=== PATIENT | male | born 1945 | race Caucasian/White ===

== ENCOUNTER 2023-10-05 08:08 | Outpatient (AMB) | payer OTHER, SELFPAY ==
--- NOTE | 2023-10-05 08:12 | MHC.OFFVIS ---
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 Lots of tremors and restless legs. Lots of trouble walking. Wondering is Carbidopa/Levodopa dose should be increased. Allergies fluoxetine [From Prozac] Allergy (Mild, Verified 10/05/23 08:23) Rash Medication List - Last Reconciled 10/05/23 by Alicia Rushing, LORENA albuterol sulfate mcg inhalation carbidopa-levodopa 25-100 mg 1 tab PO QID clonazepam 0.25 mg (1/2 x 0.5 mg) PO BEDTIME 30 days donepezil 10 mg PO DAILY entacapone (Comtan) 200 mg PO QID levetiracetam 500 mg PO BID montelukast 10 mg PO DAILY rasagiline 1 mg PO DAILY 30 days HPI HPI Comments History of Present Illness Details 78 y/o male patient presents for new in-person visit for Parkinson's. Pt was diagnosed with Parkinson's in 2021. He was seen by Dr. Renteria, [facility] Neurologist, last seen was last year. He is on Sinemet 1 tab QID with Comtan 200 mg QID, at 9 am, 12 pm, 5 pm and 9 pm. states that tremor from the hip to legs gets worse during the night. He has freezing episode in the middle of night when he wakes up to go to bathroom. In the morning his legs feels very heavy, and more shaky. He tried Sinement 1.5 tab QID, his hallucination has increased really bad. He still has hallucinations occasionally, he talks in the dark, but not every night. He also gets light headedness in the morning. He uses walker, no falls reported. Reports REM behavior, is on melatonin 10mg, and it helps reduce the REM behavior a little bit. He uses position bed, has rails, and it helps him to get out of bed. He has physical therapy once a week. He can feed himself. He can do ADLs most independently, needs help for shaving. Norbert constipation. [facility] Medical History (Updated 10/05/23 @ 14:36 by Alicia Rushing CNP) Prostate CA Appendix disease Family History (Updated 10/05/23 @ 08:45 by Monika Palma CMA) Father Cancer Alzheimer disease Hypertension Mother Hypertension Diabetes Sister Cancer Daughter Asthma Depression Social History (Updated 10/05/23 @ 08:47 by Monika Palma CMA) Household Members: Spouse Housing: House Alcohol intake: never Patient Tobacco Use Status: Never used Tobacco Review of Systems Const All systems reviewed & are unremarkable except as noted in HPI and below Physical Exam Vital Signs: Last Vital Signs Pulse 59 10/05/23 08:24 BP 122/70 10/05/23 08:24 Pulse Ox 97 10/05/23 08:24 Oxygen Delivery Method Room Air 10/05/23 08:24 BMI result Body Mass Index 26.4 Const General: cooperative Nutritional Appearance: overweight Orientation/consciousness: patient oriented x3 Limitations: ambulation with walker Neck Neck: Yes full ROM and Yes supple Resp Effort & Inspection: normal respiratory effort and able to speak in complete sentences Neuro Other: Mildly decreased facial expression. Minimal hands tremor. No cogwheel rigidity. Decreased foot tap bilaterally. Small steps with arm swing. 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 Roy. Advised patient to continue to take Sinemet 1 tab, QID with Comtan 200 mg QID. Advised patient to try rasagiline 1 mg daily. Try clonazaoam 0.25 mg qHS with melatonin 10 mg qHS to manage REM behavior. Continue to do home PT and ask to increase PT time. Medications: New rasagiline 1 mg PO DAILY 30 days 30 tabs 2RF clonazepam administer 30 minutes before bedtime 0.25 mg (1/2 x 0.5 mg) PO BEDTIME 30 days 15 tabs 2RF Coding Level of Care Code New Pt Level 4 (25619) Diagnoses Parkinson disease G20.A1 REM behavioral disorder G47.52
[2023-10-05 08:24] VITALS: BP 122/70; PULSE 59; O2SAT 97; BMI 26.4
== END 2023-10-05 09:08 | disposition home or self-care (01) ==
PROVIDERS: Visit Provider Nurse Practitioner Family
DX: G20.A1 Parkinson's disease without dyskinesia, without mention of fluctuations (principal); G47.52 REM sleep behavior disorder
CPT/HCPCS: 99204

== ENCOUNTER → 2023-10-05 08:08 | Outpatient (BNVA) | payer OTHER, SELFPAY | PROVIDERS: Visit Provider Nurse Practitioner Family | DX: G20.A1 Parkinson's disease without dyskinesia, without mention of fluctuations (principal); G47.52 REM sleep behavior disorder | CPT/HCPCS: 99202 ==

== ENCOUNTER 2024-02-01 13:54 | Outpatient (AMB) | payer OTHER, SELFPAY ==
--- NOTE | 2024-02-01 14:07 | MHC.OFFVIS ---
Vital Signs 02/01/24 14:08 Height 5 ft 3 in Weight 152 lb BMI 26.9 BP 98/60 Blood Pressure Location Rt brachial Position Sitting Respiration 16 Pulse 74 Pulse Source Pulse Oximeter Pulse Oximetry (%) 97 Oxygen Delivery Method Room Air Intake Visit Reasons: Follow up Parkinson's - Confirmed Intake Note: Pt presents for a 4 month follow up for Parkinson's. 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 Allergies fluoxetine [From Prozac] Allergy (Mild, Verified 02/01/24 14:08) Rash Medication List - Last Reconciled 02/01/24 by Jhoana Roy MD albuterol sulfate mcg inhalation carbidopa-levodopa 25-100 mg 1 tab PO QID clonazepam 0.25 mg (1/2 x 0.5 mg) PO BEDTIME 30 days docusate sodium (Stool Softener) 50 mg PO DAILY donepezil 10 mg PO DAILY entacapone (Comtan) 200 mg PO QID ferrous sulfate 1 mL PO DAILY levetiracetam 500 mg PO .qhs montelukast 10 mg PO DAILY ropinirole 2 mg PO DAILY 30 days trospium 20 mg PO BID HPI Comments Details: 78 y/o male patient presents for new in-person visit for Parkinson's. Pt was diagnosed with Parkinson's in 2021. He is on Sinemet 25/100 - 2tabs 9am 1 tab at 1pm , 1 tab at 5 pm Ropinirole XR 2mg qhs Clonazepam helps with REM behavior disorder. He also takes melatonin 3mg qhs His PCP started on mirtazapine 7.5mg but he was tired so he stopped. He had aback surgery last week and tosses and turns since then He uses walker, no falls reported. Reported REM behavior, is on melatonin 3mg and clonazepam helps. He uses position bed, has rails, and it helps him to get out of bed. He can feed himself. He can do ADLs most independently, needs help for shaving. Norbert constipation. [facility] Medical History (Updated 02/01/24 @ 14:42 by Jhoana Roy MD) Parkinson's disease without dyskinesia Prostate CA Appendix disease Surgical History H/O lumbosacral spine surgery Family History Father Cancer Alzheimer disease Hypertension Mother Hypertension Diabetes Sister Cancer Daughter Asthma Depression Social History Household Members: Spouse Housing: House Alcohol intake: never Patient Tobacco Use Status: Never used Tobacco Physical Exam Vital Signs: Last Vital Signs Pulse 74 02/01/24 14:08 Resp 16 02/01/24 14:08 BP 98/60 02/01/24 14:08 Pulse Ox 97 02/01/24 14:08 Oxygen Delivery Method Room Air 02/01/24 14:08 BMI result Body Mass Index 26.9 Const General: cooperative Nutritional Appearance: overweight Orientation/consciousness: patient oriented x3 Limitations: ambulation with walker Neck Neck: Yes full ROM and Yes supple Resp Effort & Inspection: normal respiratory effort and able to speak in complete sentences Neuro Other: Mildly decreased facial expression. Minimal hands tremor. No cogwheel rigidity. Decreased foot tap bilaterally. Small steps with arm swing. 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 Continue to do home PT and ask to increase PT time. Medications: Refilled ropinirole 2 mg PO DAILY 30 days 30 tabs 3RF Coding Level of Care Code Est Pt Level 4 (88865) Complex EM visit Add On G2211 Diagnoses Parkinson's disease without dyskinesia G20.A1 REM behavioral disorder G47.52
[2024-02-01 14:08] VITALS: BP 98/60; PULSE 74; RESP 16; O2SAT 97; BMI 26.9
== END 2024-02-01 14:52 | disposition home or self-care (01) ==
PROVIDERS: Visit Provider Psychiatry & Neurology Neurology
DX: G20.A1 Parkinson's disease without dyskinesia, without mention of fluctuations (principal); G47.52 REM sleep behavior disorder
CPT/HCPCS: 99214; G2211

== ENCOUNTER → 2024-02-01 13:54 | Outpatient (BNVA) | payer OTHER, SELFPAY | PROVIDERS: Visit Provider Psychiatry & Neurology Neurology | DX: G20.A1 Parkinson's disease without dyskinesia, without mention of fluctuations (principal); G47.52 REM sleep behavior disorder | CPT/HCPCS: 99212 ==

== ENCOUNTER 2024-08-10 13:46 | Outpatient (AMB) | payer OTHER, SELFPAY ==
[2024-08-10 13:53] VITALS: BP 96/64; BMI 26.9
--- NOTE | 2024-08-10 13:53 | A.OFFVIS_ITS ---
Vital Signs 08/10/24 13:53 Height 5 ft 3 in Weight 152 lb BMI 26.9 BP 96/64 Blood Pressure Location Rt brachial Position Sitting Intake Visit Reasons: Follow up Parkinson's Intake Note: Patient presents for follow up Allergies fluoxetine [From Prozac] Allergy (Mild, Verified 08/10/24 13:55) Rash Medication List - Last Reconciled 08/10/24 by Jhoana Roy MD albuterol sulfate mcg inhalation carbidopa-levodopa 25-100 mg 2 tabs PO TID clonazepam 0.25 mg (1/2 x 0.5 mg) PO BEDTIME 30 days docusate sodium (Stool Softener) 50 mg PO DAILY donepezil 10 mg PO DAILY 30 days ferrous sulfate 1 mL PO DAILY levetiracetam 500 mg PO .qhs montelukast 10 mg PO DAILY ropinirole 2 mg PO DAILY 30 days trospium 20 mg PO BID HPI Comments Details: 79 y/o male patient comes for follow up. His gait has worsened , more freezing , uses a cane or waker.He also has chronic back pain and had surgery last year.He has frequent arousals at night and has excessive daytime sleepiness. Pt was diagnosed with Parkinson's in 2021. He is on Sinemet 25/100 - 2tabs 9am 1 tab at 1pm , 1 tab at 5 pm Ropinirole XR 2mg qhs Clonazepam helps with REM behavior disorder. He also takes melatonin 3mg qhs Reported REM behavior, is on melatonin 3mg and clonazepam helps. He uses position bed, has rails, and it helps him to get out of bed. He needs help with ADLS due to weakness. Norbert constipation. [facility] Medical History Parkinson's disease without dyskinesia Prostate CA Appendix disease Surgical History H/O lumbosacral spine surgery Family History Father Cancer Alzheimer disease Hypertension Mother Hypertension Diabetes Sister Cancer Daughter Asthma Depression Social History Household Members: Spouse Housing: House Alcohol intake: never Patient Tobacco Use Status: Never used Tobacco Physical Exam Vital Signs: Last Vital Signs BP 96/64 08/10/24 13:53 BMI result Body Mass Index 26.9 Const General: cooperative Orientation/consciousness: patient oriented x3 Limitations: ambulation with walker Neck Neck: Yes full ROM and Yes supple Resp Effort & Inspection: normal respiratory effort and able to speak in complete sentences Neuro Other: Mildly decreased facial expression. Minimal hands tremor. No cogwheel rigidity. Decreased foot tap bilaterally. 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 ) Psych Appearance: grossly normal Mental Status: mental status grossly normal Affect: normal affect Attitude: cooperative Assessment & Plan Assessment & Plan (1) Parkinson's disease without dyskinesia: Code(s): G20.A1 - Parkinson's disease without dyskinesia, without mention of fluctuations Category: Medical Qualifiers: Fluctuating manifestations: without fluctuating manifestations Qualified Code(s): G20.A1 - Parkinson's disease without dyskinesia, without mention of fluctuations (2) REM behavioral disorder: Code(s): G47.52 - REM sleep behavior disorder Category: Medical Plan Continue Ropinirole 2mg qhs Increase Sinemet 25/100 2-2-2 clonazaoam 0.25 mg qHS with melatonin 3 mg qHS to manage REM behavior. Continue to do home PT and ask to increase PT time. Medications: Changed From carbidopa-levodopa 25-100 mg 1 tab PO QID To carbidopa-levodopa 25-100 mg 2 tabs PO TID 180 tabs 6RF Coding Level of Care Code Est Pt Level 4 (48549) Complex EM visit Add On G2211 Diagnoses Parkinson's disease without dyskinesia or fluctuating manifestations G20.A1 Fluctuating manifestations: without fluctuating manifestations REM behavioral disorder G47.52
--- OUTSIDE RECORDS SUMMARY | 2024-08-10 16:02 | XMS_ITS | Clinical Summary ---
Author Organization [place] [address] [facility] Building Address [address] [place] [address] Phone Care Team Providers Care Bsa Officer Name Role Phone Za Marie DO Primary Care Provider [phone] Allergies No known active allergies Medications Medication Sig Dispensed Refills Start Date End Date Status digestive enzymes capsule Take 1 Capsule by mouth 3 times daily (before meals). - Oral Active cyanocobalamin, vitamin B-12, 1,000 mcg/mL kit Inject 1 mL into the muscle every 30 days. - Intramuscular Active mirtazapine (REMERON) 7.5 mg tablet Take 1 tablet (7.5 mg total) by mouth at bedtime. Active rOPINIRole (REQUIP) 2 mg tablet Take 1 tablet (2 mg total) by mouth at bedtime. Active trospium (SANCTURA) 20 mg tablet Take 1 tablet (20 mg total) by mouth 2 (two) times a day. Active clonazePAM (KlonoPIN) 0.5 mg tablet Take 1 tablet (0.5 mg total) by mouth 1 (one) time each day. Active ferrous sulfate 325 mg (65 mg iron) EC tablet Take 1 tablet (325 mg total) by mouth 1 (one) time each day. Active docusate sodium (COLACE) 100 mg capsule Take 1 capsule (100 mg total) by mouth 2 (two) times a day. Active tiotropium (SPIRIVA) 18 mcg per inhalation capsule Inhale 1 Capsule into the lungs daily. Inhale the contents of one capsule through the Spiriva device every AM - Inhalation Active apixaban (ELIQUIS) 5 mg tablet Take 5 mg by mouth 2 times daily. - Oral Active sodium chloride (OCEAN) 0.65 % nasal spray 1 [place] by Nasal route as needed. - Nasal Active donepeziL (ARICEPT) 10 mg tablet Take 1 tablet by mouth at bedtime. - Oral Active carbidopa-levodo pa (SINEMET) 25-100 mg per tablet Take 1 Tablet by mouth 4 times daily. - Oral Active levETIRAcetam (KEPPRA) 500 mg tablet Take by mouth 2 (two) times a day. Active montelukast (SINGULAIR) 10 mg tablet Take 1 tablet (10 mg total) by mouth at bedtime. Active albuterol HFA (PROVENTIL HFA;VENTOLIN HFA) 108 (90 Base) MCG/ACT inhaler Inhale 2 puffs by mouth every 4 (four) hours if needed for wheezing. Active omega-3 fatty acids 1,000 mg capsule Take by mouth 1 (one) time each day. Active multivitamin (MULTIPLE VITAMINS ORAL) Take by mouth 1 (one) time each day. Active Digestive Enzymes,mal,lac, inv, 220 mg capsule TAKE 1 CAPSULE BY MOUTH 3 TIMES DAILY (BEFORE MEALS). 90 each 2 07/19/2024 5 Active docusate sodium (Colace) 100 mg capsule Take 1 capsule (100 mg total) by mouth 2 (two) times a day. 60 each 08/08/2024 Active polyethylene glycol (MIRALAX) 17 gram packet Take 17 g by mouth 1 (one) time each day. 510 g 08/08/2024 6 Active digestive enzymes capsule Take 1 capsule by mouth 3 (three) times a day. 180 each 08/08/2024 Active Digestive Enzymes,mal,lac, inv, 220 mg capsule TAKE 1 CAPSULE BY MOUTH 3 TIMES DAILY (BEFORE MEALS). 90 each 1 05/19/2024 5 Discontinued Hospital, Clinic, or Other Facility Administered Medication Ordered Dose Route Frequency Start Date End Date Status cyanocobalamin (VITAMIN B-12) injection 1,000 mcgIndications:Vitamin B 12 deficiency 1000 mcg IM Every 30 days 05/13/2024 11/09/2024 Active Encounters Date Type Department Care Team Description 08/08/2024 10:00 AM EST Office Visit Gastroenterology - [place] [address] [facility] [address] [facility] [address] [place] [address] Sterling Mckoy PA Constipation, unspecified constipation type (Primary Dx); Straining with stools; History of abdominal surgery; Blood in stool; Parkinson's disease without dyskinesia, unspecified whether manifestations fluctuate ([facility]); H/O deep venous thrombosis 06/20/2024 1:15 PM EST Office Visit Disaster Recovery Analyst - [place] [address] [place], [place] [phone] Jarad Peguero PA Vitamin B 12 deficiency (Primary Dx) 05/19/2024 1:15 PM EST Office Visit Disaster Recovery Analyst - [place] [address] [place] [address] Jarad Peguero PA Vitamin B 12 deficiency (Primary Dx) from Last 3 Months Immunizations Name Administration Dates Next Due Influenza trivalent, 0.5mL ( Fluzone High-dose) 65yo and older 03/15/2024,03/31/2023,05/09/2021 [employer] SARS-CoV-2 COVID-19, mRNA, LNP-S, preservative free 08/29/2020,08/08/2020 Pneumococcal conjugate 20 va lent (Prevnar 20, PCV 20) 2mo and older 03/31/2023 Pneumococcal polysaccharide 23 valent (Pneumovax 23) 2yo and older 12/09/2005 Tdap Tetanus diptheria acell ular pertussis (Boostrix; Adacel) 7yo and older 03/31/2023 Surgical History Surgery Date Site/Laterality Comments OTHER SURGICAL HISTORY 1991 PROCEDURE: HISTORY OTHER; COMMENT: Partial removal of intestines due to rupture OTHER SURGICAL HISTORY PROCEDURE: HISTORY OTHER; COMMENT: ?surgery for hernia 1994, 1995 OTHER SURGICAL HISTORY 2004 PROCEDURE: HISTORY OTHER; COMMENT: surgery for prostate cancer OTHER SURGICAL HISTORY 2011 PROCEDURE: HISTORY OTHER; COMMENT: penis implant Medical History Medical History Date Comments Decreased appetite DX:Decreased appetite Weight loss DX:Weight loss Nausea and vomiting DX:Nausea an d vomiting Parkinson's disease (CMS/HCC) DX :Parkinson's disease (HCC) Alzheimer's disease, unspeci fied (CODE) (CMS/[facility]) DX:Alzheimer's disease, unsp ecified (CODE) (HCC) History of pulmonary embolism DX :History of pulmonary embolism History of prostate cancer DX:Hi story of prostate cancer Vitamin B12 deficiency DX:Vitami n B12 deficiency Family History Medical History Relation Name Comments Hypertension Father Prostate cancer Father Stroke Father Asthma Mother Coronary artery disease Mother Diabetes Mother Hypertension Mother Relation Name Status Comments Father Mother Social History Tobacco Use Types Packs/Day Years Used Date Smoking Tobacco: Never Smokeless Tobacco: Never Alcohol Use Standard Drinks/Week Comments Not Currently 0 (1 standard drink = 0.6 oz pur e alcohol) Sex and Gender Information Value Date Recorded Sex Assigned at Not on file Gender Identity Not on file Sexual Orientation Not on file Job Start Date Occupation Industry Not on file Not on file Not on file Obstetrics History Last Filed Vital Signs Vital Sign Reading Time Taken Comments Blood Pressure 122/74 08/08/2024 10:11 AM EST Pulse 69 08/08/2024 10:11 AM EST Temperature - - Respiratory Rate - - Oxygen Saturation - - Inhaled Oxygen Concentration - - Weight 69.3 kg (152 lb 12.8 oz) 025 10:11 AM EST Height 160 cm (5' 3 ) 08/08/2024 10:11 AM EST Body Mass Index 27.07 08/08/2024 10:11 AM EST Plan of Treatment Health Maintenance Due Date Last Done Comments RSV Immunization Patients 60+ Years Old (1 - 1-dose 75+ series) 2022 Depression Screening 06/22/2022 Falls Risk Assessment 06/22/2022 Hepatitis C Screening 06/22/2022 Medicare Annual Wellness Visit 06/22/2022 Social Influencers of Health Screening 06/22/2022 COVID-19 Vaccine ( season) 2024 12/03/2021, 11/14/2021, 04/26/2021, Additional history exists Hypertension/CHF/CAD Annual BMP Blood Test 03/11/2025 03/11/2024, 03/11/2024, 07/03/2021 Cholesterol Screening (Lipid Panel) 03/11/2029 03/11/2024, 03/11/2024, 07/03/2021, Additional history exists DTaP,Tdap,and Td Vaccines (6 - Td or Tdap) 03/31/2033 03/31/2023, 05/08/2014, 12/27/2009, Additional history exists Zoster Vaccines Completed 09/29/2020, 07/14, 09/30/2019, Additional history exists Pneumococcal Vaccine: 65+ Years Completed 03/31/2023, 03/03/2020, 03/03/2017, Additional history exists Influenza Vaccine Completed 03/15/2024, , 03/28/2022, Additional history exists HIB Vaccines Aged Out No longer eligi ble based on patient's age to complete this topic HPV Vaccines Aged Out No longer eligi ble based on patient's age to complete this topic Hepatitis A Vaccines Aged Out No long er eligible based on patient's age to complete this topic Hepatitis B Vaccines Aged Out No long er eligible based on patient's age to complete this topic IPV Vaccines Aged Out No longer eligi ble based on patient's age to complete this topic MMR Vaccines Aged Out No longer eligi ble based on patient's age to complete this topic Meningococcal ACWY Vaccine Aged Out N o longer eligible based on patient's age to complete this topic RSV Immunization Patients Under 20 months Aged Out No longer eligible based on patient's age to complete this topic Varicella Vaccines Aged Out No longer eligible based on patient's age to complete this topic Procedures Procedure Name Priority Date/Time Associated Diagnosis Comments ANNUAL BMP BLOOD TEST Routine 03/11/2024 LIPID PANEL Routine 03/11/2024 from Last 3 Months or Most Recently Relevant to Health Maintenance Results * Annual BMP Blood Test (03/11/2024) Pathologist [facility] Annual BMP Blood Test abstracted Historical Provider MD MARIBELL ROSS E * Lipid panel (03/11/2024) LDL/HDL Ratio 3 0 - 4 Triglycerides 126 0 - 150 mg/dL Cholesterol 149 0 - 200 mg/dL HDL 50 40 mg/dL LDL Cholesterol 74 0 - 100 mg/dL Blood Venous blood specimen / Unknown Historical Provider LAB BLOOD ORDERAB LES from Last 3 Months or Most Recently Relevant to Health Maintenance Advance Directives Documents on File Type Date Recorded 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
--- OUTSIDE RECORDS SUMMARY | 2024-08-10 16:02 | XMS_ITS | Encounter Summary ---
Author Organization [facility] Address [address] [place] [address] Care Team Providers Care X Ray Equipment Mechanic Name Role Phone Za Marie DO Primary Care Provider [phone] Reason for Visit * Reason Comments Black or Bloody Stool Encounter Details Date Type Department Care Team (Latest Contact Info) Description 08/08/2024 10:00 AM EST Office Visit Gastroenterology - [place] [address] [place] [id number] Sterling Mckoy PA [address] [place] [address] Constipation, unspecified constipation type (Primary Dx); Straining with stools; History of abdominal surgery; Blood in stool; Parkinson's disease without dyskinesia, unspecified whether manifestations fluctuate (CMS/HCC); H/O deep venous thrombosis Social History Tobacco Use Types Packs/Day Years [...] file Not on file Not on file documented as of this encounter Last Filed Vital Signs Vital Sign Reading [...] Mass Index 27.07 08/08/2024 10:11 AM EST documented in this encounter Patient Instructions * Attachments The following attachments cannot be sent through Care Everywhere. * Constipation (Puerto [place]ican) * Parkinson's Disease ([place]) * Fiber Foods: General Info ([place]) documented in this encounter Ordered Prescriptions Prescription Sig Dispensed Refills Start Date End Da te digestive enzymes capsule Take 1 capsule by mouth 3 (three) times a day. 180 each 08/08/2024 polyethylene glycol (MIRALAX) 17 gram packet Take 17 g by mouth 1 (one) time each day. 510 g 08/08/2024 08/08/2025 docusate sodium (Colace) 100 mg capsule Take 1 capsule (100 mg total) by mouth 2 (two) times a day. 60 each 08/08/2024 documented in this encounter Progress Notes * BREANN Adair - 08/08/2024 10:00 AM EST Patient returns for follow up of constipation and recent history of blood ins tool. Patient does have some issues with constipation- may be due to medications or inactivity. Patient should use the colace daily as well as the miralax and see if that will helop with the movement. He has had blood recently but that was after sitting on the toilet for 2 hours. Patient also is on eliquis and may have caused some rectal irritation due to sitting for so long. Patient to use the medications to help move the bowels and if needed for more medications they will contact the office. Patient has also had surgery to the large intestines due to diverticulitis. Patient needs to use fiber foods. Patient needs to drink mo0re water and try to stay active * BREANN Adair - 08/08/2024 10:00 AM EST DENTIFIER: Cesar Barbour is a 79 y.o. old male who presents to the gastroenterology department today for re-evaluation of constipation, straining with stool, recent episode of blood in toilet. HPI: 79-year-old gentleman returns for follow up of constipation and recent history of blood in stool. Patient is accompanied by his and their adult son. Patient had last been seen in January 2023 for abdominal pain and had undergone an endoscopy and colonoscopy in February 2023. Studies were essentially normal. They did note that he had diverticulosis as well as end-to-end ileocolonic anastomosis from colon resection due to diverticulitis in the past. patient does have some issues with constipation- may be due to medications and/or inactivity. Patient should use the colace daily as well as the miralax and see if that will help with the movement. He has had blood in the toilet recently but that was after sitting on the toilet for 2 hours and admits to straining to excrete the stool. Patient also is on eliquis and may have caused some rectal irritation due to sitting for so long. Patient to use the medications to help move the bowels and if needed for more medications they willcontact the office. Patient has also had surgery to the large intestines due to diverticulitis in the past. Patient needs to use fiber foods. Patient needs to drink more water and try to stay active-is not very active due to his Parkinson's ROS: GENERAL: No malaise, significant weight loss or fever HEENT: No changes in hearing or vision, nose bleeds or swallowing problems NECK: No lumps, goiter, pain or significant neck swelling RESPIRATORY: No cough, wheezing or shortness of breath CARDIOVASCULAR: No chest pain, leg swelling or palpitations GI: Positive for constipation, abdominal discomfort, blood in stool, straining with stool MUSCULOSKELETAL: No joint pain or swelling, back pain, or muscle pain. SKIN: No lesions, rash or itching Neuro: Positive for Parkinson's Hematology: Positive for history of DVT on Eliquis The remainder of the review of systems is reviewed and negative. PAST MEDICAL HISTORY: There are no problems to display for this patient. SOCIAL HISTORY: Social History Tobacco Use Smoking status: Never Smokeless tobacco: Never Substance Use Topics Alcohol use: Not Currently FAMILY HISTORY: Family History Problem Relation Name Age of Onset Coronary artery disease Mother Diabetes Mother Hypertension Mother Asthma Mother Hypertension Father Prostate cancer Father Stroke Father ACTIVE MEDICATIONS: Outpatient Medications Marked as Taking for the 08/08/24 encounter (Office Visit) with BREANN Adair Medication Sig Dispense Refill albuterol HFA (PROVENTIL HFA;VENTOLIN HFA) 108 (90 Base) MCG/ACT inhaler Inhale 2 puffs by mouth every 4 (four) hours if needed for wheezing. apixaban (ELIQUIS) 5 mg tablet Take 5 mg by mouth 2 times daily. - Oral carbidopa-levodopa (SINEMET) 25-100 mg per tablet Take 1 Tablet by mouth 4 times daily. - Oral clonazePAM (KlonoPIN) 0.5 mg tablet Take 1 tablet (0.5 mg total) by mouth 1 (one) time each day. cyanocobalamin, vitamin B-12, 1,000 mcg/mL kit Inject 1 mL into the muscle every 30 days. - Intramuscular digestive enzymes capsule Take 1 Capsule by mouth 3 times daily (before meals). - Oral Digestive Enzymes,mal,lac,inv, 220 mg capsule TAKE 1 CAPSULE BY MOUTH 3 TIMES DAILY (BEFORE MEALS).90 each 2 docusate sodium (COLACE) 100 mg capsule Take 1 capsule (100 mg total) by mouth 2 (two) times a day. donepeziL (ARICEPT) 10 mg tablet Take 1 tablet by mouth at bedtime. - Oral ferrous sulfate 325 mg (65 mg iron) EC tablet Take 1 tablet (325 mg total) by mouth 1 (one) time each day. levETIRAcetam (KEPPRA) 500 mg tablet Take by mouth 2 (two) times a day. mirtazapine (REMERON) 7.5 mg tablet Take 1 tablet (7.5 mg total) by mouth at bedtime. montelukast (SINGULAIR) 10 mg tablet Take 1 tablet (10 mg total) by mouth at bedtime. multivitamin (MULTIPLE VITAMINS ORAL) Take by mouth 1 (one) time each day. omega-3 fatty acids 1,000 mg capsule Take by mouth 1 (one) time each day. rOPINIRole (REQUIP) 2 mg tablet Take 1 tablet (2 mg total) by mouth at bedtime. sodium chloride (OCEAN) 0.65 % nasal spray 1 [place] by Nasal route as needed. - Nasal tiotropium (SPIRIVA) 18 mcg per inhalation capsule Inhale 1 Capsule into the lungs daily. Inhale the contents of one capsule through the Spiriva device every AM - Inhalation trospium (SANCTURA) 20 mg tablet Take 1 tablet (20 mg total) by mouth 2 (two) times a day. Current Facility-Administered Medications for the 08/08/24 encounter (Office Visit) with BREANN Adair Medication Dose Route Frequency Provider Last Rate Last Admin cyanocobalamin (VITAMIN B-12) injection 1,000 mcg 1,000 mcg intramuscular q30 days Za Marie DO 1,000 mcg at 06/20/24 1418 ALLERGIES: @ALL@ PHYSICAL EXAM: Visit Vitals BP 122/74 Pulse 69 Ht 1.6 m (63 ) Wt 69.3 kg (152 lb 12.8 oz) BMI 27.07 kg/m?? Smoking Status Never BSA 1.72 m?? APPEARANCE: Alert and in no acute distress EYES: PERRLA, conjunctiva and sclera normal. MOUTH/THROAT: no erythema or exudates NECK: Neck supple, no adenopathy HEART: RRR with normal S1 and S2, no murmurs appreciated LUNG: clear to auscultation LYMPH NODES: grossly normal ABDOMEN: Soft, nontender, normal active bowel sound throughout, no organomegaly RECTAL: Exam deferred. EXTREMITIES: Extremities warm and well perfused SKIN: Skin color, texture, turgor normal. LABS: No results found for: WBC , HGB , HCT , MCV , PLT , NA , K , CL , CO2 , GLUCOSE , BUN , CREATININE , CALCIUM , PROT , ALBUMIN , BILITOT , AST , ALT , URICACID , PHOS , MG , ALKPHOS , EGFR No results found for: SEDRATE , CRP , IRON , FERRITIN , CDIFFTOX , HPYLORI , STOOLCX , LIPASE , APTT , PT , INR , CELIAC , TTGIGA , GLIADINIGA , OCCULTBLD , CALPROTECTIN IMAGING: RADIOLOGIC EXAM CHEST 2 VIEWS RADIOLOGIC EXAM CHEST 2 VIEWS Reason: cough Comparison: Radiographs on May 24, 2023 FINDINGS: Lungs: No focal consolidation. No evidence of pulmonary edema. Pleura: No pleural effusion or pneumothorax. Heart/Mediastinum: Unchanged cardiomediastinal silhouette. Bones : No acute abnormality. IMPRESSION: IMPRESSION: No acute abnormality. CT Results for orders placed in visit on 06/01/23 CT ABDOMEN & PELVIS W/WO CONT Narrative [facility] Diagnostic Imaging Department [address] [place] [id number] Patient: CESAR BARBOUR /Age/Sex: 1945 - 78 - M Unit#: [id number] Location/Status: SPDICAT/REG CLI Mnemonic/Ordering Site: CTABDPELB/SPCT Ordering Physician: MARTÍNEZ PATEL MD CT Abdomen & Pelvis W/WO Cont - 06/01/23 - [id number] Report Status:Signed CT scan of the abdomen and pelvis without and with contrast (CT IVP) HISTORY: Gross hematuria COMPARISON: CT scan of the abdomen and pelvis dated 12/17/2015 TECHNIQUE: Thin section axial scans were obtained through the abdomen and pelvis without and with contrast. Delayed views were obtained to evaluate the collecting structures. Sagittal and coronal reconstructions were performed. DLP: 1775.02 mGy/cm ZenCardpeed VCT Iterative reconstruction technique: FINDINGS: There is a low attenuating exophytic lesion anterior aspect mid pole left kidney measuring 2.75 cm in maximal dimensions and measures fluid density likely a cyst but is increased significantly in size since the previous examination at which time it measured 1.6 cm. There is small peripelvic left renal cysts. There is a tiny 5 mm low attenuating lesion mid pole right kidney likely a small cortical cysts. There is no evidence for calculus. The kidneys enhance normally and symmetrically with contrast. The calyces and ureters appear normal. The bladder is not well distended. There is a bladder diverticulum to the left laterally which was present previously. There is no definite bladder mass. There are postoperative changes the prostate again noted. There is a penile implant in place. Lung bases are clear. There is cardiomegaly which was noted previously. There is no pericardial or pleural effusion. Liver and spleen are normal size and contour. There are multiple gallstones within the gallbladder. There is no gallbladder wall thickening or bile duct dilatation. Adrenals and pancreas appear normal. Limited views of the bowel demonstrated extensive colonic diverticulosis without definite evidence for diverticulitis. There are also postoperative changes in the right colon. Aorta is of normal caliber. There is no retroperitoneal mass. There is no intrapelvic adenopathy mass or fluid. Impression 1. 2.8 cm low attenuating lesion left kidney possibly a cyst but significantly increased in size compared to previous examinations dating back to 2016. Robin mmend renal sonography to further assess. There are postoperative changes to the prostate and the bladder is not well distended and views are limited.. However there is no definite bladder mass. 2. Extensive colonic diverticulosis without definite evidence for diverticulitis. 3. Other findings as detailed above unchanged. G9637 Dose G9549, G9547 (Documenting medical reason for recommending f/u) Dictating Physician: JOSUE CROWDER MD Electronically Signed by: JOSUE CROWDER MD Dic Date/Time: 06/09/23 1617 Sign date/Time: 06/09/23 1632 US Results for orders placed in visit on 05/18/22 [facility] [address] [place] [id number] Patient: CESAR BARBOUR Kenna DINH D.O.B./Age/Sex: 1945 - 77 - M Unit#: [id number] Location/Status: SP4ORT/ADM [place] Mnemonic/Ordering Site: [facility] Ordering Physician: GEORGE NORWOOD PA-C US Duplex Venous Study Bilat - 05/18/22 - 2823 Bilateral lower extremity venous Doppler ultrasound. May 18, 2022 2215 hours Clinical history: Confirm VTE Lower extremity Comparison: No prior study is available for comparison. Findings: Stuart scale, color flow and spectral Doppler evaluation of the lower extremity deep veins was performed. Right: The common femoral, superficial femoral and popliteal veins are patent and compressible. Normal respiratory variation is noted. The calf veins to the extent visualized are patent. There is no evidence of occlusive or nonocclusive thrombus. Left: The common femoral, superficial femoral and popliteal veins are patent and compressible. Normal respiratory variation is noted. One of the peroneal vein is noncompressible from proximal to mid aspect, extending up to the mid calf region. Impression: Nonocclusive deep vein thrombosis of the left peroneal vein from proximal / mid to the mid calf region. No sonographic evidence of deep venous thrombosis in the right lower extremity. Dictating Physician: MANNY MESSER MD Electronically Signed by: MANNY MESSER MD Dic Date/Time: 05/19/22 115 Sign date/Time: 05/19/22 115 IMPRESSION: 1. Constipation, unspecified constipation type 2. Straining with stools 3. History of abdominal surgery 4. Blood in stool 5. Parkinson's disease without dyskinesia, unspecified whether manifestations fluctuate (CMS/HCC) 6. H/O deep venous thrombosis PLAN: 1. Constipation, straining with stool, history of abdominal surgery, blood in stool, Parkinson's, history of DVT Patient does have a history of constipation and straining with stool He was recently seen at the ER on 02 August secondary to blood in the toilet. Patient admits that he sat on the toilet for about 2 hours trying to excrete the stool which most likely irritated the rectum. He is also on Eliquis due to a history of DVT and this also can exacerbate the irritation to the rectum and cause bleeding. Patient has been suggested to take Colace to help soften the stool, MiraLAX as a mild laxative and family is aware to contact the office with questions regarding other medications to be used to help with the bowel movement. Patient is aware that some activity can be helpful to stimulate his bowels. Patient is also suffers from Parkinson's which certainly can slow his bowel movements as well and aware to try and be somewhat active to help with the bowel movement. Patient should also be using fiber due to his history of diverticulosis. He has had abdominal surgery in the past with bowel perforation and does have an end to end anastomosis noted on previous colonoscopy. Patient is aware as well as the family to contact office with any questions or concerns or need forother medications. Total time of today's encounter is 38 minutes in preparing to see the patient, reviewing labs, diagnostic studies as well as other provider notes, documenting in charting, creating an HPI, performinga medically appropriate exam, counseling patient at length in regards to constipation, straining with stool, blood in the toilet, increase water and use of medications as well as prescribing medication. There was documentation in EMR after visit. None of which time was spent performing separately billable procedures or ancillary services. Many thanks for allowing us to participate in patient's care No orders of the defined types were placed in this encounter. ADDITIONAL ORDERS: None BREANN Adair documented in this encounter Plan of Treatment Not on file documented as of this encounter Visit Diagnoses Diagnosis Constipation, unspecified constipation type- Primary Straining with stools History of abdominal surgery Blood in stool Parkinson's disease without dyskinesia, unspecified whether manifestations fluctuate (CMS/[facility]) H/O deep venous thrombosis documented in this encounter Care Teams X Ray Equipment Mechanic Relationship Specialty Start Date End Date Za Marie DO [address] [place] [id number] PCP - General Internal Medicine 05/13/24 documented as of this encounter
== END 2024-08-10 14:24 | disposition home or self-care (01) ==
PROVIDERS: Visit Provider Psychiatry & Neurology Neurology
DX: G20.A1 Parkinson's disease without dyskinesia, without mention of fluctuations (principal); G47.52 REM sleep behavior disorder
CPT/HCPCS: 99214; G2211

== ENCOUNTER → 2024-08-10 13:46 | Outpatient (BNVA) | payer OTHER, SELFPAY | PROVIDERS: Visit Provider Psychiatry & Neurology Neurology | DX: G20.A1 Parkinson's disease without dyskinesia, without mention of fluctuations (principal); G47.52 REM sleep behavior disorder | CPT/HCPCS: 99212 ==

== ENCOUNTER 2024-10-03 10:41 | Outpatient (AMB) | payer OTHER, SELFPAY ==
[2024-10-03 11:19] VITALS: BP 98/64; PULSE 72; O2SAT 95; BMI 29.6
--- NOTE | 2024-10-03 11:19 | A.OFFVIS_ITS ---
Vital Signs 10/03/24 11:19 Height 5 ft 3 in Weight 167 lb BMI 29.6 BP 98/64 Blood Pressure Location Rt brachial Position Sitting Pulse 72 Pulse Source Pulse Oximeter Pulse Oximetry (%) 95 Oxygen Delivery Method Room Air Intake Visit Reasons: 2 mo follow up Intake Note: Patient presents follow up Parkinson's. Patient very weak and can not walk legs tremble, accupucture about 3 weeks ago., Allergies fluoxetine [From Prozac] Allergy (Mild, Verified 10/03/24 11:37) Rash HPI Comments Details: 79 y/o male patient with PD comes for follow up. His and son are with him today and help with history. He was dx with PD in 2021. He says he has bilateral leg weakness, sleeps all day long and has difficulty staying asleep at night due to 5+ bathroom trips. His gait is worse, freezing and uses his walker more than his cane now. He uses his wheel chair more often due to risk of falls. He also has chronic back pain as he had surgery last year and is seeing Accupuncturist for LBP. He is on Sinemet 25/100 - 2tabs 9am, 2 tab at 1pm and 2 tab at 5 pm, as his was giving this medication with meals, patient education provided. He is also taking Ropinirole XR 2mg qhs. He denies A/V Hallucinations, takes Clonazepam prn for REM behavior. He uses position bed, has rails, and it helps him to get out of bed. He needs help with all his ADLS due to weakness. Constipation, BM every 2-3 days, doesn't drink enough water, but takes Docusate daily. Nocturia is taking Trospium 20mg BID, will f/u with Urology. Gait freezing, difficulty initiating steps, feet feel glued or stuck to the ground and small steps with shaking and difficulty turning Dyskinesia and Pill Rolling tremors improved since increasing dose of CD/LD. Muscles twitching and spasms, on Ropinirole 2mg PO daily. Drooling decreased since dose CD/LD was increased. Swallowing difficulties denies, eats soft food and mindfully chews all meat. Mood is depressed, fatigued, with anxiety, gets over stimulated easily with interactions and takes Mirtazapine Memory is still good, he occasionally forgets STM tasks and just moved into a new home, so adjusting. Mobility is not active does not exercises and likes to be alone. Falls Needs to be supervised, fell in Jul 2024, he missed the last 2 steps of stairs in home and now has a chair lift, and fell onto the door, with minor L. shoulder injury. 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 He has a CAN RUNNER helping him with bathing, dressing 3x a week, 30-34 hours a week, handicap accessible with rails. His PCP is Dr. Levine at [facility]. [facility] Medical History Parkinson's disease without dyskinesia Prostate CA Appendix disease Surgical History H/O lumbosacral spine surgery Family History Father Cancer Alzheimer disease Hypertension Mother Hypertension Diabetes Sister Cancer Daughter Asthma Depression Social History Household Members: Spouse Housing: House Alcohol intake: never Patient Tobacco Use Status: Never used Tobacco Physical Exam Vital Signs: Last Vital Signs Pulse 72 10/03/24 11:19 BP 98/64 10/03/24 11:19 Pulse Ox 95 10/03/24 11:19 Oxygen Delivery Method Room Air 10/03/24 11:19 BMI result Body Mass Index 29.6 Const General: cooperative Orientation/consciousness: patient oriented x3 Limitations: ambulation with walker Neck Neck: Yes full ROM and Yes supple Resp Effort & Inspection: normal respiratory effort and able to speak in complete sentences Neuro Other: Mildly decreased facial expression. Minimal hands tremor. No cogwheel rigidity. Decreased foot tap bilaterally. Small steps with arm swing- freezing episode General: patient oriented x3 Cranial nerves: Yes CN's II-XII intact bilaterally Cognition (Neuro): normal cognition Motor exam (neuro): 5/5 motor strength present throughout (Left hand manager telemetry weaker than right. ) Psych Appearance: grossly normal Mental Status: mental status grossly normal Affect: normal affect Attitude: cooperative Results Reviewed Results Reviewed: [facility] Assessment & Plan Assessment & Plan (1) Parkinson disease: Code(s): G20.A1 - Parkinson's disease without dyskinesia, without mention of fluctuations Category: Medical Qualifiers: Dyskinesia presence: with dyskinesia Fluctuating manifestations: with fluctuating manifestations Qualified Code(s): G20.B2 - Parkinson's disease with dyskinesia, with fluctuations (2) Nocturia more than twice per night: Code(s): R35.1 - Nocturia Category: Medical Plan Muscle spasms and twitching Continue Ropinirole 2mg qhs Nocturia >5x per night ref to Urology pt is on trospium 20mg PO BID PD Continue Sinemet 25/100 2-2-2- patient education provided re: medication adherence. REM behavior Continue Clonazepam 0.25 mg qhs Stop melatonin 3 mg qhs. Continue to do home PT and ask to increase PT time. Orders: Referrals Urology Referral G20.B2 - Parkinson's disease with dyskinesia, with fluctuations, R35.1 - Nocturia Patient Instructions: CD/ LD (Sinemet) take this medication with a glass of juice or with a cookie / cracker or banana, at 7am, 11am, and 3pm, and 8pm. Do not take any protein or meat products with this medication. Continue Home PT and staying active will improve quality of life, freeqing of gait difficulties, low intensity exercises are helpful for PD. Constipation take stool softener daily and must consume lots of water, may dilute juices, prune juice, eat lots of vegetables with good fiber intake, drink lemonade. Goal should be 50% of body weight in water intake. Coding Level of Care Code Est Pt Level 4 (66444) Complex EM visit Add On G2211 Diagnoses Parkinson's disease with dyskinesia and fluctuating manifestations G20.B2 Dyskinesia presence: with dyskinesia Fluctuating manifestations: with fluctuating manifestations Nocturia more than twice per night R35.1 Time Spent (min) 50 Comment Worsening Gait
== END 2024-10-03 12:45 | disposition home or self-care (01) ==
LOC: HO.HSMS 10:42
PROVIDERS: Visit Provider Physician Assistant Medical
DX: G20.B2 Parkinson's disease with dyskinesia, with fluctuations (principal); R35.1 Nocturia
CPT/HCPCS: 99214; G2211

== ENCOUNTER → 2024-10-03 10:41 | Outpatient (BNVA) | payer OTHER, SELFPAY | PROVIDERS: Visit Provider Physician Assistant Medical | DX: G20.B2 Parkinson's disease with dyskinesia, with fluctuations (principal); R35.1 Nocturia | CPT/HCPCS: 99212 ==

== ENCOUNTER 2024-12-06 10:57 | Outpatient (AMB) | payer OTHER, SELFPAY ==
--- NOTE | 2024-12-06 11:10 | A.OFFVIS_ITS ---
Intake Visit Reasons: Nocturia Intake Note: New Patient presents for initial visit for Nocturia Urology Medications: none Blood Thinner: none PVR: 0ml's Porcelain Slusher Required: No Accompanied by: Unknown Allergies fluoxetine [From [email or web address]] Allergy (Mild, Verified 12/06/24 11:53) Rash Medication List - Last Reconciled 12/06/24 by YAYA FelipeP- albuterol sulfate mcg inhalation apixaban (Eliquis) 2.5 mg PO BID carbidopa-levodopa 25-100 mg 2 tabs PO TID clonazepam 0.25 mg (1/2 x 0.5 mg) PO BEDTIME 30 days docusate sodium (Stool Softener) 50 mg PO DAILY donepezil 10 mg PO DAILY 30 days ferrous sulfate 1 mL PO DAILY levetiracetam 500 mg PO .qhs mirabegron ER (Myrbetriq) 25 mg PO DAILY 30 days montelukast 10 mg PO DAILY ropinirole 2 mg PO DAILY 30 days HPI Comments Details: Tyron is a pleasant 79-year-old male patient who was accompanied by his significant other and son at today's office visit. He has a past medical history of prostate cancer status post prostatectomy in 2004, erectile dysfunction status post penile prosthetic in 2014, and Parkinson's. He presents to the office today as a new patient to establish urological care. In discussion with the patient and his family he reports previously following up with [facility] however has recently moved to the [place] area in his attempting to establish urological care. He discusses his longstanding history of prostate cancer and ongoing lower urinary tract symptoms. He reports noting episodes of nocturia 3-4 times per night as well as multiple incontinent episodes throughout the day that require him to use adult depends that he changes 5-6 times per day. He also discusses his ongoing back issues that he follows up at the [place] for. Unable to obtain urine for urinalysis today however PVR 0 mL. We did discussed at length potential causes of lower urinary tract symptoms patient is experiencing as well as further treatment options and risks and benefits of these treatment options. He reports being on trospium 20 mg daily for over 2-3 years and feels this was helpful initially however feels urinary symptoms have worsened. He denies hematuria, dysuria, foul smelling urine, flank pain, fever, and or chills. We discussed obtaining retroperitoneal ultrasound and PSA for further assessment evaluation. We also discussed lifestyle modifications such as timed/scheduled voiding given patient's decreased mobility to decrease incontinent episodes. We also discussed the importance of limiting fluids 2-3 hours prior to bed to decrease episodes of nocturia. When asked he denies any signs and symptoms of sleep apnea. All questions were answered. He otherwise offers no other issues or concerns at this time. Plan The plan includes switching from trospium to Mirabegron 25 mg once daily. Reduction of late-day fluid intake is advised to mitigate nocturia. Further evaluation entails obtaining PSA and retroperitoneal ultrasound for further assessment evaluation. A release form will be signed to attempt to obtain previous medical records for comprehensive care coordination. Patient was informed and verbally consented to the use of an ambient scribe for clinic note documentation during this visit. Discussion Notes We discussed with the patient and caregiver the change from trospium to Mirabegron to attempt to manage urinary symptoms more effectively. I emphasized the importance of obtaining previous healthcare records for continuity of care. Assurance was given that Mirabegron dosage can be adjusted based on symptom relief, and I have provided guidance on transitioning to a new medication regimen, including risks of side effects like high blood pressure. Follow-up will involve monitoring therapeutic response and adapting the management as needed based on changes in symptoms. It was confirmed that Parkinson's Disease poses a complication that will be integrated into this management strategy. [facility] Medical History Parkinson's disease without dyskinesia Prostate CA Appendix disease Surgical History H/O lumbosacral spine surgery Family History Father Cancer Alzheimer disease Hypertension Mother Hypertension Diabetes Sister Cancer Daughter Asthma Depression Social History Household Members: Spouse Housing: House Alcohol intake: never Patient Tobacco Use Status: Never used Tobacco Review of Systems Const All systems reviewed & are unremarkable except as noted in HPI and below Physical Exam Const General: cooperative, healthy appearing, comfortable, no acute distress, well developed, alert and awake Orientation/consciousness: patient oriented x3 Limitations: ambulation with walker HEENT Head: Yes normal to inspection, Yes normocephalic and Yes atraumatic Ears: hearing grossly normal bilaterally Eyes General: appearance normal, both eyes and all related structures Neck Neck: Yes normal visual inspection and Yes trachea midline Chest Chest palpation & inspection: normal inspection of the chest Resp Effort & Inspection: normal respiratory effort and able to speak in complete sentences Cardio Rate: regular rate GI Inspection: Yes normal to inspection General: Yes no CVA tenderness Back/Spine/Pelvis Back: no CVA tenderness Skin General skin exam: no rashes or lesions noted Neuro General: patient oriented x3 Extrem General: Yes normal to inspection Psych Appearance: grossly normal and well kempt Mental Status: mental status grossly normal Speech and movement: Normal speech and movement present and Clear speech present Affect: normal affect Attitude: cooperative Thought process: Normal thought process present Thought content: Normal thought content present Insight: Fair insight present (Psych) Judgement: Fair judgement present (Psych) Office Procedures Post Void Residual Post Residual Void Post Void Residual (PVR): 0 [id number] Void Residual by ultrasound Assessment & Plan Assessment & Plan (1) Nocturia more than twice per night: Code(s): R35.1 - Nocturia Category: Medical (2) History of prostate cancer: Code(s): Z85.46 - Personal history of malignant neoplasm of prostate Category: Medical (3) Urinary incontinence, mixed: Code(s): N39.46 - Mixed incontinence Category: Medical Plan Unable to obtain urine for urinalysis today as patient unable to void however PVR 0 mL. We discussed signing medical release form to obtain previous urology records for continuity of care. We discussed potential causes of lower urinary tract symptoms patient was experiencing as well as further treatment options and risks and benefits of these treatment options. Stop trospium Start Myrbetriq as discussed and prescribed. We discussed importance of timed/scheduled voiding given patient has decreased mobility We also discussed the importance of limiting fluids 2-3 hours prior to bed to decrease episodes of nocturia. Will obtain retroperitoneal ultrasound for further assessment evaluation. Will obtain PSA for further assessment evaluation. Follow-up in 1-3 months with imaging, labs, and PVR to be completed prior; or sooner with any issues, concerns, and or questions. Orders: Orders Prostate Specific Antigen Today R35.1 - Nocturia, Z85.46 - Personal history of malignant neoplasm of prostate AMB Post Void Residual by ultrasound Today R35.1 - Nocturia US retroperitoneal comp Today R35.1 - Nocturia Medications: New mirabegron ER (Myrbetriq) 25 mg PO DAILY 30 days 30 tabs 3RF N32.81 - Overactive bladder, R35.1 - Nocturia, R39.15 - Urgency of urination Patient Instructions: The patient had an opportunity to ask questions regarding the treatment plan. All questions were answered. Physical exam, labs, and imaging were discussed and reviewed in detail. As well as risks, benefits, and discussion of treatment choices. No major barriers to understanding were identified. The patient expressed understanding and agreement with the above treatment plan. The patient was made aware they should contact our office by phone for worsening of their current condition, the appearance of new symptoms, or with any questions or concerns. Compliance is encouraged with any medications and follow up testing that is ordered. It is a privilege to be allowed the opportunity to participate in? your urological care.? Again, if you have any questions or concerns If you have any questions or concerns please do not hesitate to contact me. The office is [phone]. This note is constructed using voice recognition software. While every effort has been made to ensure accuracy mower sharpener errors may have been included. Yours sincerely, SERGIO Felipe Coding Level of Care Code New Pt Level 4 (92946) Diagnoses Nocturia more than twice per night R35.1 History of prostate cancer Z85.46 Urinary incontinence, mixed N39.46 CPT Codes Post Residual Void - PVR CPT Code: [id number] Void Residual by ultrasound ([id number])
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
== END 2024-12-06 11:51 | disposition home or self-care (01) ==
LOC: HO.HUSH 10:57
PROVIDERS: Referring Provider Nurse Practitioner Family; Visit Provider Nurse Practitioner Family
DX: R35.1 Nocturia (principal); Z85.46 Personal history of malignant neoplasm of prostate; N39.46 Mixed incontinence
CPT/HCPCS: 99204

== ENCOUNTER → 2024-12-06 10:57 | Outpatient (BNVA) | payer OTHER, SELFPAY | PROVIDERS: Visit Provider Nurse Practitioner Family | DX: R35.1 Nocturia (principal); N39.46 Mixed incontinence; Z85.46 Personal history of malignant neoplasm of prostate | CPT/HCPCS: 51798; 99202 ==

== ENCOUNTER 2024-12-26 14:55 | Outpatient (AMB) | payer OTHER, SELFPAY ==
--- NOTE | 2024-12-26 15:00 | A.OFFVIS_ITS ---
Vital Signs 12/26/24 15:01 Height 5 ft 3 in Weight 156 lb BMI 27.6 BP 124/80 Blood Pressure Location Rt brachial Position Sitting Pulse 60 Pulse Source Pulse Oximeter Pulse Oximetry (%) 98 Oxygen Delivery Method Room Air Intake Visit Reasons: 4 mo follow up Intake Note: Patient presents for follow up med adjustment carbidopa-levodopa Allergies fluoxetine [From Prozac] Allergy (Mild, Verified 12/06/24 11:53) Rash Medication List - Last Reconciled 12/26/24 by Jhoana Roy MD albuterol sulfate mcg inhalation apixaban (Eliquis) 2.5 mg PO BID carbidopa-levodopa 25-100 mg 1 tab PO QID clonazepam 0.25 mg (1/2 x 0.5 mg) PO BEDTIME 30 days docusate sodium (Stool Softener) 50 mg PO DAILY donepezil 10 mg PO DAILY 30 days escitalopram oxalate 10 mg PO DAILY ferrous sulfate 325 mg PO DAILY levetiracetam 500 mg PO .qhs mirabegron ER (Myrbetriq) 25 mg PO DAILY 30 days mirtazapine 7.5 mg PO BEDTIME montelukast 10 mg PO DAILY rasagiline 0.5 mg PO DAILY ropinirole 2 mg PO DAILY 30 days HPI Comments Details: 79 y/o male patient with PD comes for follow up. He is better with increase in carbidopa/levodopa dose. He still ahs end of dose wearing off. Last week he was admitted to [facility] for hallucinations- CT scan- CVA ruled out . Changed sinemet 25/100 1 1/2 qid insteda of 2 tabs tid . He was off his eliquis for 5 days for back injections. His and son are with him today and help with history. He was dx with PD in 2021. He says he has bilateral leg weakness, sleeps all day long and has difficulty staying asleep at night due to 5+ bathroom trips. His gait is worse, freezing and uses his walker more than his cane now. He uses his wheel chair more often due to risk of falls. He also has chronic back pain as he had surgery last year and is seeing Accupuncturist for LBP. He is on Sinemet 25/100 - 1 1 /2 qid He is also taking Ropinirole 2mg qhs. He denies A/V Hallucinations, takes Clonazepam prn for REM behavior. He uses position bed, has rails, and it helps him to get out of bed. He needs help with all his ADLS due to weakness. Constipation, BM every 2-3 days, doesn't drink enough water, but takes Docusate daily. Nocturia - f/u urology Gait freezing, difficulty initiating steps, feet feel glued or stuck to the ground and small steps with shaking and difficulty turning Dyskinesia and Pill Rolling tremors improved since increasing dose of CD/LD. Muscles twitching and spasms, on Ropinirole 2mg PO daily. Drooling decreased since dose CD/LD was increased. Swallowing difficulties denies, eats soft food and mindfully chews all meat. Mood is depressed, fatigued, with anxiety, gets over stimulated easily with interactions and takes Mirtazapine Memory is still good, he occasionally forgets STM tasks and just moved into a new home, so adjusting. Mobility is not active does not exercises and likes to be alone. 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 He has a TREASURY MANAGEMENT SALES CONSULTANT helping him with bathing, dressing 3x a week, 30-34 hours a week, handicap accessible with rails. His PCP is Dr. Levine at [facility]. 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 Surgical History H/O lumbosacral spine surgery Family History Father Cancer Alzheimer disease Hypertension Mother Hypertension Diabetes Sister Cancer Daughter Asthma Depression Social History Household Members: Spouse Housing: House Alcohol intake: never Patient Tobacco Use Status: Never used Tobacco Physical Exam Vital Signs: Last Vital Signs Pulse 60 12/26/24 15:01 BP 124/80 12/26/24 15:01 Pulse Ox 98 12/26/24 15:01 Oxygen Delivery Method Room Air 12/26/24 15:01 BMI result Body Mass Index 27.6 Const General: cooperative Orientation/consciousness: patient oriented x3 Limitations: ambulation with walker Neck Neck: Yes full ROM and Yes supple Resp Effort & Inspection: normal respiratory effort and able to speak in complete sentences Neuro Other: Mildly decreased facial expression. He is due for his medication Minimal hands tremor. Increased tone Decreased foot tap bilaterally. 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 ) Psych Appearance: grossly normal Mental Status: mental status grossly normal Affect: normal affect Attitude: cooperative Assessment & Plan Assessment & Plan (1) Parkinson disease: Code(s): G20.A1 - Parkinson's disease without dyskinesia, without mention of fluctuations Category: Medical Qualifiers: Dyskinesia presence: with dyskinesia Fluctuating manifestations: with fluctuating manifestations Qualified Code(s): G20.B2 - Parkinson's disease with dyskinesia, with fluctuations (2) Nocturia more than twice per night: Code(s): R35.1 - Nocturia Category: Medical Plan I will trial rasagiline 0.5 mg qd Ropinirole to 2mg qhs ( XR not covered by insurance) PD Continue Sinemet 25/100 1 1/2 tabs qid - patient education provided re: medication adherence. REM behavior Continue Clonazepam 0.25 mg qhs Past trials - Rytary -did not tolerate Medications: New rasagiline 0.5 mg PO DAILY 30 tabs 6RF Jhoana Roy MD Changed From carbidopa-levodopa 25-100 mg may take 2 tablets of cd/ld (sinemet) 25/100mg TID. 2 tabs PO TID 180 tabs 6RF G20.B2 - Parkinson's disease with dyskinesia, with fluctuations To carbidopa-levodopa 25-100 mg takes 1 and a half QID may take 2 tablets of cd/ld (sinemet) 25/100mg TID. 1 tab PO QID G20.B2 - Parkinson's disease with dyskinesia, with fluctuations Jagruti Moon PA-C Coding Level of Care Code Est Pt Level 4 (26923) Complex EM visit Add On G2211 Diagnoses Parkinson's disease with dyskinesia and fluctuating manifestations G20.B2 Dyskinesia presence: with dyskinesia Fluctuating manifestations: with fluctuating manifestations Nocturia more than twice per night R35.1
[2024-12-26 15:01] VITALS: BP 124/80; PULSE 60; O2SAT 98; BMI 27.6
--- OUTSIDE RECORDS SUMMARY | 2024-12-26 16:39 | XMS_ITS | Patient Health Record ---
Author Organization Richie Turner M.D. Address [address] [facility] [address] [place] [address] Care Team Providers Care Digital Marketing Consultant Name Role Phone Richie Turner Primary Care Provider Gurwinder Funez Unavailable [phone] Reason For Referral No Information Medications Medication SIG (Take, Route, Frequency, Duration) Notes Start Date End Date Status Ipratropium-Albuterol 0.5-2.5 (3) MG/3ML Solution 3 ml Inhalation Four times a day; Duration: 30 days 08/16/2014 Active Singulair 10 MG Tablet 1 tablet in the evening Orally Once a day Active Ventolin HFA 108 (90 Base) MCG/ACT Aerosol Solution 2 puffs as needed Inhalation every 4 hrs Active Advair Diskus 250-50 MCG/DOSE Aerosol Powder Breath Activated 1 puff Inhalation Twice a day; Duration: 90 days 08/16/2014 Active Cyclobenzaprine HCl 10 MG Tablet 1 tablet Orally Three times a day; Duration: 30 days Not-Taking Meloxicam 7.5 MG Tablet 1 tablet Orally bid a day; Duration: 30 days 05/23/2015 Active LORazepam 1 MG Tablet 1 tablet as needed Orally Twice a day; Duration: 30 days bid prn Active traZODone HCl 100 MG Tablet 1 tablet at bedtime Orally Once a day; Duration: 30 days Called in by Tatum Andre MA 05/23/2015 5:36:55 PM > Active Social History Social History Drugs/Alcohol: Social Info Question Answer Notes Caffeine Intake: 1-2 cups per day Additional Details Category Social Info Options Details Miscellaneous: Marital status: Problems Problem Type SNOMED Code ICD Code Onset Dates Problem Status W/U Status Risk Notes Problem Obstructive sleep apnea syndrome (disorder) (06747052) Obstructive sleep apnea (adult) (pediatric) (327.23) Active confirmed Problem Benign essential hypertension (2611809) Essential hypertension, benign (401.1) Active confirmed Problem Asthma (disorder) (384819442) Asthma, unspecified, unspecified status (493.90) Active confirmed Problem History of malignant neoplasm of prostate (678221455) Personal history of malignant neoplasm of prostate (V10.46) Active confirmed Problem Acute exacerbation of chronic asthmatic bronchitis (922160983) Chronic obstructive asthma, with (acute) exacerbation (493.22) Active confirmed Problem Uncomplicated asthma (disorder) (725915486) Unspecified asthma, uncomplicated (J45.909) Active confirmed Problem Essential hypertension (48144330) Essential (primary) hypertension (I10) Active confirmed Problem Sedative, hypnotic or anxiolytic dependence, 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 [address] [place], [place] [id number] [phone] [id number] Tyron Rubio Self - patient is the insured Medical (General) History Medical History History ICD Code Obstructive sleep apnea (adult) (pediatr ic) 327.23 Chronic obstructive asthma, with (acute) exacerbation 493.22 Asthma, unspecified, unspecified status 493.90 Essential hypertension, benign 401.1 prostate ca 2005- no radiation ASHLEY PTSD Surgical History Surgery Date(Month/Year) ruptured intestine- laparotomy- sp sepsi s and peritonitis 1991 hernia repair penile prosthesis post prostate ca surge ry
== END 2024-12-26 15:34 | disposition home or self-care (01) ==
LOC: HO.HSMS 14:55
PROVIDERS: Visit Provider Psychiatry & Neurology Neurology
DX: G20.B2 Parkinson's disease with dyskinesia, with fluctuations (principal); R35.1 Nocturia
CPT/HCPCS: 99214; G2211

== ENCOUNTER → 2024-12-26 14:55 | Outpatient (BNVA) | payer OTHER, SELFPAY | PROVIDERS: Visit Provider Psychiatry & Neurology Neurology | DX: G20.B2 Parkinson's disease with dyskinesia, with fluctuations (principal); R35.1 Nocturia | CPT/HCPCS: 99212 ==

== ENCOUNTER 2025-02-06 10:03 | Outpatient (AMB) | payer OTHER, SELFPAY ==
[2025-02-06 10:30] VITALS: BP 104/62; PULSE 58; O2SAT 95; BMI 28.1
--- NOTE | 2025-02-06 10:30 | A.OFFVIS_ITS ---
Vital Signs 02/06/25 10:30 Height 5 ft 3 in Weight 158 lb 6 oz BMI 28.1 BP 104/62 Blood Pressure Location Rt brachial Position Sitting Pulse 58 Pulse Source Pulse Oximeter Pulse Oximetry (%) 95 Oxygen Delivery Method Room Air Intake Visit Reasons: Medication concerns Intake Note: Patient presents follow up Parkinson medication. Patient very tired/sleepy during the day. just falls asleep if watching tv or if someone talking to him. By 7 he is ready for bed. Very depressed. Accompanied by: Spouse Allergies fluoxetine (From [email or web address]) Allergy (Mild, Verified 02/06/25 10:34) Rash HPI Comments Details: 79 y/o male patient presents for a f/u of Parkinsons Disorder. His helps with history today. He takes sinemet 25/100m 1 tablet qid. Rasigiline would make the feet race faster with the walker and he stopped this medication. He was diagnosed with PD in 2021, he had a +Datscan in 2020 which shows he has LBD and Parkinsonism. She says she has noticed he has slowed down now, less motor fluctuations.. His blood pressure has been lower than usual usually around 104/62. He has chronic back pain due to surgery last year and [facility] He falls asleep when in conversation, is fatigued, and very depressed, and his feet move super fast as he walks into [place]ryan, and runs over his walker. He sleeps all day long, has difficulty sleeping at night due to nocturia, he wears depends and can soak through them. He says he has bilateral leg weakness, spasm, twitching takes Ropinorole 2mg qhs, along with magnesium spray for muscle soreness. His gait is worse, more freezing and uses his walker more than his cane. His now has to push him in the wheel chair due to risk of falls. 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 He uses position bed, has rails, and it helps him to get in/ out of bed. He needs help with all his ADLS due to weakness. Constipation, BM every 2-3 days, doesn't drink enough water, takes Docusate daily. Nocturia follow up urology, wears diapers. Gait freezing, difficulty initiating steps, feet feel glued or stuck to the ground and small steps with shaking and difficulty turning L=R. Dyskinesia and Pill Rolling tremors improved since increasing dose of CD/LD. Muscles twitching and spasms on ropinorole 2mg po qhs. Drooling decreased since dose CD/LD was increased. Dysphagia denies, eats soft and pureed foods. 158lbs today in office and losing weight, poor appetite. Mood is depressed, fatigued, with anxiety, gets over stimulated easily with interactions and takes Mirtazapine 7.5mg po qhs. Memory is still good, he occasionally forgets STM tasks and just moved into a new home, adjusting and repeating questions. Mobility is not active does not exercises and likes to be alone, we discussed [employer] work out sessions today for support resources. No falls since last visit. 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 He has a MINING MANAGER helping him with bathing, dressing 3x a week, 30-34 hours a week, handicap accessible with rails. His PCP is Dr. [facility] [place] 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 Surgical History H/O lumbosacral spine surgery Family History Father Cancer Alzheimer disease Hypertension Mother Hypertension Diabetes Sister Cancer Daughter Asthma Depression Social History Household Members: Spouse Housing: House Alcohol intake: never Patient Tobacco Use Status: Never used Tobacco Physical Exam Vital Signs: Last Vital Signs Pulse 58 02/06/25 10:30 BP 104/62 02/06/25 10:30 Pulse Ox 95 02/06/25 10:30 Oxygen Delivery Method Room Air 02/06/25 10:30 BMI result Body Mass Index 28.1 Const General: cooperative Orientation/consciousness: patient oriented x3 Limitations: ambulation with walker Eyes Pupils: Equal, round and reactive pupils present Neck Neck: Yes full ROM and Yes supple Resp Effort & Inspection: normal respiratory effort and able to speak in complete sentences Neuro Other: Blunt facial expression. Oral tremor of the mouth. 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 Increased tone. Decreased foot tap bilaterally. R foot better than L foot. Hunched over posture, no arm swing. Small steps- side steps to initate movement to the wheel chair and smacks his legs to get started. 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 ), Abnormal motor strength present, Tremors during motor activity present and Motor abnormalites present Psych Appearance: grossly normal Mental Status: mental status grossly normal Affect: normal affect Attitude: cooperative Results Reviewed Results Reviewed: [facility] Assessment & Plan Assessment & Plan (1) Parkinson disease: Comment: CD/LD 25/100 sinemet 1 tablet daily 4 times a day. Code(s): G20.A1 - Parkinson's disease without dyskinesia, without mention of fluctuations Category: Medical Qualifiers: Dyskinesia presence: with dyskinesia Fluctuating manifestations: with fluctuating manifestations Qualified Code(s): G20.B2 - Parkinson's disease with dyskinesia, with fluctuations (2) REM behavioral disorder: Comment: continue clonazepam 0.25mg po at bedtime Code(s): G47.52 - REM sleep behavior disorder Category: Medical (3) Fatigue: Comment: due to insomnia Code(s): R53.83 - Other fatigue Category: Medical Qualifiers: Fatigue type: chronic, unspecified Qualified Code(s): R53.82 - Chronic fatigue, unspecified (4) Nocturia more than twice per night: Comment: followed by urology BPH -Myrbetriq 25mg po daily Code(s): R35.1 - Nocturia Category: Medical Plan PD with LBD continue Sinemet 25/100 1 tablet qid - patient education provided re: medication adherence and administration. Hold Rasagiline 0.5mg po qd, s/e increased motor fluctuations, with gait and balance difficulties. Bilateral leg weakness and cramps continue Ropinirole 2mg po daily Hallucinations and or REM behavior continue Clonazepam 0.25 mg qhs MRI to compare with old MRI from 2021 Past trials - Rytary -did not tolerate Orders: Orders MR head/brain wo con Today G20.B2 - Parkinson's disease with dyskinesia, with fluctuations, G47.52 - REM sleep behavior disorder Medications: Changed From mirtazapine 7.5 mg PO BEDTIME G47.52 - REM sleep behavior disorder To mirtazapine take one tablet daily at bedtime 7.5 mg PO BEDTIME 30 tabs 3RF sleep G47.52 - REM sleep behavior disorder Refilled clonazepam administer 30 minutes before bedtime 0.25 mg (1/2 x 0.5 mg) PO BEDTIME 15 tabs 2RF 30 days Patient Instructions: -[employer] sessions and 90 min sessions with 10 min training circuits, in [place] at the [facility]. -[facility] has resources for families of Parkinsons Disorder, with social support groups for care givers. -Resources for family and patient to engage in conversations and find physical therapies which help to decrease symptoms of PD. -Forms for the [employer] assistance program as directed by the [place]. -Continue B12 -Continue Levitracetam 750mg po daily. -insomnia continue Mirtazapine 7.5mg po daily. -anxiety and depression continue citalopram 10mg po daily. -MRI compare with old MRI from 2021. -Request records, labs, imaginging, from [place], Datscan Coding Level of Care Code Est Pt Level 4 (29741) Complex EM visit Add On G2211 Diagnoses Parkinson's disease with dyskinesia and fluctuating manifestations G20.B2 Dyskinesia presence: with dyskinesia Fluctuating manifestations: with fluctuating manifestations REM behavioral disorder G47.52 Chronic fatigue R53.82 Fatigue type: chronic, unspecified Nocturia more than twice per night R35.1 Time Spent (min) 35
--- OUTSIDE RECORDS SUMMARY | 2025-02-06 11:06 | XMS_ITS | Clinical Summary ---
Author Organization [address] Address [address] [place] [id number] Phone Care Team Providers Care Optimization Engineer Name Role Phone Za Marie DO Primary Care Provider [phone] Allergies No known active allergies Medications digestive enzymes capsule Take 1 Capsule by mouth 3 times daily (before meals). - Oral Active cyanocobalamin , vitamin B-12, 1,000 mcg/mL kit Inject 1 mL into the muscle every 30 days. - Intramuscular Active rOPINIRole (REQUIP) 2 mg tablet Take [...] chloride (OCEAN) 0.65 % nasal spray 1 [place] by Nasal route as needed. - Nasal Active donepeziL (ARICEPT) 10 mg tablet Take 1 tablet by mouth at bedtime. - Oral Active carbidopa-levo dopa (SINEMET) 25-100 mg per tablet Take 1 [...] (one) time each day. Active docusate sodium (Colace) 100 mg capsule Take 1 capsule (100 mg total) by mouth 2 (two) times a day. 60 each 5 Active polyethylene glycol (MIRALAX) 17 gram packet Take 17 g by mouth 1 (one) time each day. 510 g 5 08/08/19 26 Active digestive enzymes capsule Take 1 capsule by mouth 3 (three) times a day. 180 each 5 Active mirtazapine (REMERON) 7.5 mg tablet Take 1 tablet (7.5 mg total) by mouth at bedtime. 90 tablet 1 5 Active Immunizations Name Administration Dates Next Due Influenza trivalent, 0.5mL ( Fluzone High-dose) 65yo and older 03/15/2024,03/31/2023,05/09/2021 [employer] SARS-CoV-2 COVID-19, mRNA, LNP-S, preservative free 08/29/2020,08/08/2020 [...] vomiting DX:Nausea an d vomiting Parkinson's disease ([facility] V24, [facility] V28) DX:Parkinson's disease ([facility]) Alzheimer's disease, unspeci fied (CODE) ([facility] V24, [facility] V28) DX:Alzheimer's disease, uns pecified (CODE) ([facility]) History of pulmonary embolism DX :History of [...] Recorded Sex Assigned at Not on file Legal Sex Male 8:27 AM EST Gender Identity Not on file Sexual Orientation Not on file Obstetrics History Last Filed [...] Due Date Last Done Comments RSV Immunization Adult Patients (1 - 1-dose 75+ series) 2022 Falls Risk Assessment 06/22/2022 Hepatitis C Screening 06/22/2022 Medicare Annual Wellness Visit 06/22/2022 Social Influencers of Health Screening 06/22/2022 COVID-19 Vaccine ( season) 2024 12/03/2021, 11/14/2021, 04/26/2021, Additional history exists Depression Screening 07/13/2024 Hypertension/CHF/CAD Annual BMP Blood Test 03/11/2025 03/11/2024, 03/11/2024, 07/03/2021 Influenza Vaccine (#1) 2025 , 03/31/2023, 03/28/2022, Additional history exists Cholesterol Screening (Lipid Panel) 03/11/2029 03/11/2024, 03/11/2024, 07/03/2021, Additional history exists DTaP,Tdap,and Td Vaccines (6 - Td or Tdap) 03/31/2033 03/31/2023, 05/08/2014, 12/27/2009, Additional history exists Zoster Vaccines Completed 09/29/2020, 07/14, 09/30/2019, Additional history exists Pneumococcal Vaccine: 50+ Years Completed 03/31/2023, 03/03/2020, 03/03/2017, Additional history exists HIB Vaccines Aged Out [...] patient's age to complete this topic Meningococcal B Vaccine Aged Out No l onger eligible based on patient's age to complete [...] * Annual BMP Blood Test (03/11/2024) Pathologist [facility] Annual BMP Blood Test abstracted us Historical Provider HEALTH MAINTENANCE Final Result * Lipid panel (03/11/2024) LDL/HDL Ratio 3 0 - 4 Triglycerides 126 0 - 150 mg/dL Cholesterol 149 0 - 200 mg/dL HDL 50 >=40 mg/dL LDL Cholesterol 74 0 - 100 mg/dL Blood Venous blood specimen / Unknown Historical Provider LAB BLOOD ORDERABLES Buffy l Result from Last 3 Months or Most Recently Relevant to Health Maintenance Insurance [employer] MEDICARE Advance Directives Documents on File Type Date Recorded Patient C Programmer Expl anation Health Care Decision (hx) 02/25/2023 HE ALTH CARE PROXY Health Care Decision (hx) 02/25/2023 HE ALTH CARE PROXY Health Care Decision (hx) 02/25/2023 HE ALTH CARE PROXY Health Care Decision (hx) 02/25/2023 HE ALTH CARE PROXY Health Care Decision (hx) 02/25/2023 HE ALTH CARE PROXY Care Teams Optimization Engineer Relationship Specialty Start Date End Date Za Marie DO [address] [facility] [place] [address] PCP - General Internal Medicine 05/13/24
== END 2025-02-06 11:26 | disposition home or self-care (01) ==
LOC: HO.HSMS 10:04
PROVIDERS: Referring Provider Physician Assistant Medical; Visit Provider Physician Assistant Medical
DX: G20.B2 Parkinson's disease with dyskinesia, with fluctuations (principal); G47.52 REM sleep behavior disorder; R53.82 Chronic fatigue, unspecified; R35.1 Nocturia
CPT/HCPCS: 99214; G2211

== ENCOUNTER → 2025-02-06 10:03 | Outpatient (BNVA) | payer OTHER, SELFPAY | PROVIDERS: Visit Provider Physician Assistant Medical | DX: G20.B2 Parkinson's disease with dyskinesia, with fluctuations (principal); G47.52 REM sleep behavior disorder; R53.82 Chronic fatigue, unspecified; R35.1 Nocturia | CPT/HCPCS: 99212 ==

== ENCOUNTER 2025-02-27 11:19 | Outpatient (REF) | payer OTHER, SELFPAY ==
--- NOTE | ~2025-02-27 | US_ITS ---
CLINICAL HISTORY: R35.1 - Nocturia Renal ultrasound Comparison: None available Findings: The kidneys are normal in echotexture bilaterally. No hydronephrosis. The right kidney is normal in size, measuring 10.0cm in length. Questionable lower pole cyst versus trace perinephric fluid ( normal versus trace perinephric fluid is favored on the cine images). The left kidney is normal in size, measuring 10.5cm in length. Cyst measuring 2.6 x 2.8 x 2.9 cm Impression: No definitive acute pathology.Questionable right lower pole subcentimeter cyst versus trace perinephric fluid versus normal. Perinephric stranding is a nonspecific finding. This document has been electronically signed by: Leonie Stone MD on 02/28/2025 16:58:38
--- OUTSIDE RECORDS SUMMARY | 2025-02-27 12:37 | XMS_ITS | Patient Health Record ---
Author Organization Richie Turner M.D. Address [address] [facility] [address] [place] [address] Care Team Providers Care End Touching Machine Operator Name Role Phone Richie Turner Primary Care Provider Gurwinder Funez Unavailable [phone] Reason For Referral No Information Medications Medication [...] Notes Problem Obstructive sleep apnea syndrome (disorder) (12826021) Obstructive sleep apnea (adult) (pediatric) (327.23) Active confirmed Problem Benign essential hypertension (9696303) Essential hypertension, benign (401.1) Active confirmed Problem Asthma (disorder) (376791007) Asthma, unspecified, unspecified status (493.90) Active confirmed Problem History of malignant neoplasm of prostate (191819416) Personal history of malignant neoplasm of prostate (V10.46) Active confirmed Problem Acute exacerbation of chronic asthmatic bronchitis (962036992) Chronic obstructive asthma, with (acute) exacerbation (493.22) Active confirmed Problem Uncomplicated asthma (disorder) (381452646) Unspecified asthma, uncomplicated (J45.909) Active confirmed Problem Essential hypertension (43731825) Essential (primary) hypertension (I10) Active confirmed Problem Sedative, hypnotic or anxiolytic dependence, 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 [address] [place], [place] [id number] [phone] [id number] Tyron Rubio Self - patient is the [...]
--- OUTSIDE RECORDS SUMMARY | 2025-02-27 12:37 | XMS_ITS | Encounter Summary ---
Author Organization [facility] Address [address] [place] [address] Care Team Providers Care Gasoline Dragline Operator Name Role Phone Za Marie DO Primary Care Provider [phone] Encounter Details Date Type Department Care Team (Late st Contact Info) Description 02/17/[address] [facility] - Main Lab [address] [facility] [place] [address] Sherice Martinez MD [address] [id number] Chest pain, unspecified; Parkinson's disease without dyskinesia, without mention of fluctuations (CMS/HCC V24, CMS/HCC V28); Post traumatic seizures (CMS/HCC V24, CMS/HCC V28); Personal history of pulmonary embolism Social History Tobacco Use Types Packs/Day Years Used Date Smoking Tobacco: Never Smokeless Tobacco: Never Alcohol Use Standard Drinks/Week Comments Not Currently 0 (1 standard drink = 0.6 oz pur e alcohol) Sex and Gender Information Value Date Recorded Sex Assigned at Not on file Legal Sex Male 8:27 AM EST Gender Identity Not on file Sexual Orientation Not on file documented as of this encounter Plan of Treatment Not on file documented as of this encounter Visit Diagnoses Diagnosis Chest pain, unspecified Parkinson's disease without dyskinesia, without mention of fluctuations (CMS/HCC V24, CMS/HCC V28) Post traumatic seizures (CMS/HCC V24, CMS/HCC V28) Post traumatic seizures Personal history of pulmonary embolism documented in this encounter Care Teams Gasoline Dragline Operator Relationship Specialty Start Date End Date Za Marie DO [facility] [place], [place] [id number] PCP - General Internal Medicine 05/13/24 documented as of this encounter
== END 2025-02-27 11:20 | disposition home or self-care (01) ==
LOC: HO.US 11:19
PROVIDERS: Visit Provider Nurse Practitioner Family
DX: R35.1 Nocturia (principal)
CPT/HCPCS: 76775

== ENCOUNTER → 2025-02-27 11:20 | Outpatient (BNV) | payer OTHER, SELFPAY | PROVIDERS: Visit Provider Radiology Diagnostic Radiology | DX: N28.1 Cyst of kidney, acquired (principal) | CPT/HCPCS: 76775 ==

== ENCOUNTER 2025-03-01 11:31 | Outpatient (AMB) | payer OTHER, SELFPAY ==
--- NOTE | 2025-03-01 11:32 | MHC.OFFVIS ---
Intake Visit Reasons: Hospital follow up, med changes Intake Note: Patient presents for Hospital follow up wants to talk about medication hospital changed Allergies fluoxetine (From Prozac) Allergy (Mild, Verified 03/01/25 11:32) Rash HPI Comments Details: 79 y/o male patient with Parkinsons and Cognitive disorder, presents for a tele-health appt post hospital stay. His Miladis Rubio helps with history today, doximity visit unable due to wifi issues at their home. Interval Medical History: 02/09/2025 to 02/20/2025 Patient was taken to [facility] for symptoms which resembled stroke, eye drooping and mouth turning, MRI and CTscan r/o stroke and patient transferred to [facility] nursing in [facility] for Rehab, was not allowed to stay with him overnight and he became agitated with AMS in a new surrounding, and started to hallucinate, seeing people, spiders and had blurry vision. He had severe abdominal pain and bowel incontinence, U/S dx of diverticulitis then transferred to [facility], started on abx, then discharged 02/20/2025 with PT/ST/and VNA halfway services. Currently at home and on regiment of CD/LD- 25/100mg QID, Mirtazapine 7.5mg, Ropinirole 2mg po. Citalpram 20mg po qhs. Melatonin 2.5mg. for sleep, and Keppra dose adjusted to 500mg po BID in hospital. He came home very weak, could not walk and had diarrhea for 2 days. He has been home for a week now and mental status has improved, he recognizes everyone and is in his natural environment. His diet has improved, solid foods are not tolerated due elie dyspahagia but appetite is good, soup for lunch and mashed potatoes. Solid food needs to be cut up into small pieces or purred. Sleep schedule has improved since coming home, no hallucinations. would like to decrease keppra [id number] po BID, we discussed maintaining it at 500mg po BID, to avoid lowering the seizure threshold, and she agrees. B1 labs/ stool labs pending for exposure to teraflumide and a h/o parasites with colon perforation in 1991. Swallow study with speech is also pending He uses the wheel chair more than walker, with the walker is hesitant to walk due to falls and freezing of the gait. Needs help with all his ADLs, transferring, toileting, dressing, eating. RF on esictalopram oxalate 10mg po is increased to 20 mg po, contact psych at [facility]. Constipation denies. Nocturia wears diapers at night. Gait freezing, difficulty initiating steps, feet feel glued or stuck to the ground and small steps with shaking and difficulty turning L=R. Dyskinesia and Pill Rolling tremors now moderate. Muscles twitching and spasms. Drooling decreased since dose of CD/LD was increased. Mood is depressed, fatigued, with anxiety, gets over stimulated easily with interactions and takes Mirtazapine 7.5mg po qhs. Memory is poor, forgets most STM tasks and recently moved into a new home, adjusting and repeating questions, needs redirection. Mobility is not as active as before. 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 He has a RENAL MEDICINE PHYSICIAN who comes in 30 hours a week, he needs help with bathing, dressing 3x a week, handicap accessible with rails. His PCP is Dr. Levine at [place] [place] Tiruflide expsoure - 02/18/2025, Dr. Davis requested the stool specimen [facility] [place] Medical History Diverticulitis Parkinson's disease without dyskinesia Prostate CA Appendix disease Surgical History H/O lumbosacral spine surgery Family History Father Cancer Alzheimer disease Hypertension Mother Hypertension Diabetes Sister Cancer Daughter Asthma Depression Social History Household Members: Spouse Housing: House Alcohol intake: never Patient Tobacco Use Status: Never used Tobacco Telehealth Telehealth Telehealth Platform: Telephone Location of provider rendering services: practice address Location of patient: address on file Patient Identification confirmed using: Name, : Yes Telehealth method: voice only Patient verbally consented to treatment: Yes Patient verbally consented to billing insurance company: Yes Patient informed of any privacy concerns related to visit: Yes Minutes spent on Phone/Video with Pt.: 25 Results Reviewed Results Reviewed: The kidneys are normal in echotexture bilaterally. No hydronephrosis. The right kidney is normal in size, measuring 10.0cm in length. Questionable lower pole cyst versus trace perinephric fluid ( normal versus trace perinephric fluid is favored on the cine images). The left kidney is normal in size, measuring 10.5cm in length. Cyst measuring 2.6 x 2.8 x 2.9 cm Impression: No definitive acute pathology.Questionable right lower pole subcentimeter cyst versus trace perinephric fluid versus normal. Perinephric stranding is a nonspecific finding. Assessment & Plan Assessment & Plan (1) Parkinson disease: Comment: CD/LD 25/100 sinemet 1 tablet daily 4 times a day. Code(s): G20.A1 - Parkinson's disease without dyskinesia, without mention of fluctuations Category: Medical Qualifiers: Dyskinesia presence: with dyskinesia Fluctuating manifestations: with fluctuating manifestations Qualified Code(s): G20.B2 - Parkinson's disease with dyskinesia, with fluctuations (2) REM behavioral disorder: Comment: continue clonazepam 0.25mg po at bedtime Code(s): G47.52 - REM sleep behavior disorder Category: Medical (3) Fatigue: Comment: due to insomnia Code(s): R53.83 - Other fatigue Category: Medical Qualifiers: Fatigue type: chronic, unspecified Qualified Code(s): R53.82 - Chronic fatigue, unspecified (4) Nocturia more than twice per night: Comment: followed by urology BPH -Myrbetriq 25mg po daily Code(s): R35.1 - Nocturia Category: Medical (5) Seizure disorder: Comment: on keppra 500mg po BID Code(s): G40.909 - Epilepsy, unspecified, not intractable, without status epilepticus Category: Medical Plan PD with cognitive disorder continue Sinemet 25/100 1 tablet qid - patient education provided re: medication adherence and administration. Continue Rasagiline 0.5mg po qhs. Continue Ropinirole 2mg po qhs Bilateral leg weakness and cramps Anxiety Continue [facility] Sleep difficulties continue Mirtazapine 7.5mg po daily at bedtime, and Melatonin 2.5mg po at bedtime. VH / AH Hallucinations and or REM behavior discontinued Clonazepam 0.25 mg qhs MRI to compare with old MRI from 2021 F/U with Dr. Lemus in 3 months or sooner. Past trials - Rytary -did not tolerate Medications: New levetiracetam 500 mg PO BID 180 tabs 3RF Seizure disorder G40.909 - Epilepsy, unspecified, not intractable, without status epilepticus Refilled mirtazapine take one tablet daily at bedtime 7.5 mg PO BEDTIME 30 tabs 3RF sleep G47.52 - REM sleep behavior disorder donepezil 10 mg PO DAILY 30 days 30 tabs 6RF donepezil 10 mg PO DAILY 30 tabs 6RF 30 days On Hold levetiracetam ER Hold Comment: Dose Change 750 mg PO DAILY 90 tabs 6RF Patient Instructions: Forms to be filled out for [place], fill out and mail to [place] for renovations to the home, so it is more handicap accessible. Stool testing for parasites,, f/u with Dr. Davis at the [place]. OT/PT speech and halfway services continue. Levels of Thiamine per PCP prior to administration of Thiamine. Continue Parenteral treatments of B12 monthly Coding Level of Care Code Tele Est Pt Level 4 (93500) Diagnoses Parkinson's disease with dyskinesia and fluctuating manifestations G20.B2 Dyskinesia presence: with dyskinesia Fluctuating manifestations: with fluctuating manifestations REM behavioral disorder G47.52 Chronic fatigue R53.82 Fatigue type: chronic, unspecified Nocturia more than twice per night R35.1 Seizure disorder G40.909
--- OUTSIDE RECORDS SUMMARY | 2025-03-01 12:50 | XMS_ITS | Encounter Summary ---
Author Organization [facility] Address [address] [place] [address] Care Team Providers Care Central Office Repairer Supervisor Name Role Phone Za Marie DO Primary Care Provider Encounter Details Date Type Department Care Team (Late st Contact Info) Description 02/17/2025 Lab Requisition [facility] - Main Lab [address] [facility] [address] Sherice Martinez MD [address] [phone] Chest pain, unspecified; Parkinson's disease without dyskinesia, [...] embolism documented in this encounter Care Teams Central Office Repairer Supervisor Relationship Specialty Start Date End Date Za Marie DO [facility] [place], [place] [phone] PCP - General Internal Medicine 05/13/24 documented as of this encounter
== END 2025-03-01 12:58 | disposition home or self-care (01) ==
LOC: HO.HSMS 11:32
PROVIDERS: Visit Provider Physician Assistant Medical
DX: G20.B2 Parkinson's disease with dyskinesia, with fluctuations (principal); G47.52 REM sleep behavior disorder; R53.82 Chronic fatigue, unspecified; R35.1 Nocturia; G40.909 Epilepsy, unspecified, not intractable, without status epilepticus
CPT/HCPCS: 99214

== ENCOUNTER 2025-03-03 15:30 | Outpatient (REF) | payer OTHER, SELFPAY ==
--- NOTE | ~2025-03-03 | US_ITS ---
EXAMINATION: US PELVIS LIMITED (BLADDER) CLINICAL INFORMATION: Nocturia. COMPARISON: None available. TECHNIQUE: Real-time imaging of the bladder. FINDINGS: BLADDER: Well distended and normal. Ureteral jets were not demonstrated. Prevoid bladder volume is 161 mL. Postvoid bladder volume is 67 mL. US/US bladder IMPRESSION: Small residual postvoid volume. Electronically signed by: Issa Cohen MD 03/03/2025 04:19 PM EDT
--- OUTSIDE RECORDS SUMMARY | 2025-03-03 15:33 | XMS_ITS | Patient Health Record ---
Author Organization Richie Turner M.D. Address [address] [facility] [address] [place] [address] Care Team Providers Care Body Line Finisher Name Role Phone Richie Turner Primary Care Provider [phone] Gurwinder Funez Unavailable [phone] Reason For Referral No Information Medications Medication [...] Notes Problem Obstructive sleep apnea syndrome (disorder) (36104425) Obstructive sleep apnea (adult) (pediatric) (327.23) Active confirmed Problem Benign essential hypertension (9459110) Essential hypertension, benign (401.1) Active confirmed Problem Asthma (disorder) (103451552) Asthma, unspecified, unspecified status (493.90) Active confirmed Problem History of malignant neoplasm of prostate (453876676) Personal history of malignant neoplasm of prostate (V10.46) Active confirmed Problem Acute exacerbation of chronic asthmatic bronchitis (935903069) Chronic obstructive asthma, with (acute) exacerbation (493.22) Active confirmed Problem Uncomplicated asthma (disorder) (391010822) Unspecified asthma, uncomplicated (J45.909) Active confirmed Problem Essential hypertension (71355939) Essential (primary) hypertension (I10) Active confirmed Problem Sedative, hypnotic or anxiolytic dependence, 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 [address] [place], [place] [id number] [phone] [id number] Tyron Rubio Self - patient is the [...]
--- OUTSIDE RECORDS SUMMARY | 2025-03-03 15:33 | XMS_ITS | Encounter Summary ---
Author Organization [facility] Address [address] [place] [address] Care Team Providers Care Armature Winder [employer]otive Name Role Phone Za Marie DO Primary Care Provider [phone] Encounter Details Date Type Department Care Team (Late st Contact Info) Description 02/17/2025 Lab Requisition [facility] - Main Lab [address] [facility] [place] [address] Sherice Martinez MD [address] [phone] Chest pain, unspecified; Parkinson's disease without dyskinesia, [...] embolism documented in this encounter Care Teams Armature [employer] Relationship Specialty Start Date End Date Za Marie DO [facility] [place], [place] [phone] PCP - General Internal Medicine 05/13/24 documented as of this encounter
== END 2025-03-03 15:31 | disposition home or self-care (01) ==
LOC: HO.US 15:30
PROVIDERS: Visit Provider Nurse Practitioner Family
DX: R35.1 Nocturia (principal)
CPT/HCPCS: 76857

== ENCOUNTER → 2025-03-03 15:36 | Outpatient (BNV) | payer OTHER, SELFPAY | PROVIDERS: Visit Provider Radiology Diagnostic Radiology | DX: R35.1 Nocturia (principal) | CPT/HCPCS: 76857 ==

== ENCOUNTER 2025-03-08 11:52 | Outpatient (REF) | payer OTHER, SELFPAY ==
--- OUTSIDE RECORDS SUMMARY | 2025-03-08 12:41 | XMS_ITS | Encounter Summary ---
Author Organization [facility] Address [address] [place] [address] Care Team Providers Care Quality Assurance Supervisor Trim Name Role Phone Za Marie DO Primary Care Provider [phone] Encounter Details Date Type Department Care Team (Late st Contact Info) Description 02/17/2025 Lab Requisition [facility] - Main Lab [address] [facility] [place] [address] Sherice Martinez MD [address] [phone] Chest pain, unspecified; Parkinson's disease without dyskinesia, [...] embolism documented in this encounter Care Teams Quality Assurance Supervisor Trim Relationship Specialty Start Date End Date Za Marie DO [facility] [place], [place] [phone] PCP - General Internal Medicine 05/13/24 documented as of this encounter
--- OUTSIDE RECORDS SUMMARY | 2025-03-08 12:41 | XMS_ITS | Clinical Summary ---
Author Organization [address] Address [address] [place] [phone] Phone Care Team Providers Care Clerk Entry Level Name Role Phone Za Marie DO Primary Care Provider [phone] Allergies No known active allergies Medications digestive [...] chloride (OCEAN) 0.65 % nasal spray 1 [place] by Nasal route as needed. - Nasal [...] at bedtime. 90 tablet 1 5 Active Encounters Date Type Department Care Team Description 02/17/2025 Lab Requisition [facility] - Main Lab [address] [facility] [place] [address] Sherice Martinez MD Chest pain, unspecified; Parkinson's disease without dyskinesia, without mention of fluctuations (CMS/HCC V24, CMS/HCC V28); Post traumatic seizures (CMS/HCC V24, CMS/HCC V28); Personal history of pulmonary embolism from Last 3 Months Immunizations Name Administration Dates Next Due Influenza trivalent, 0.5mL ( Fluzone High-dose) 65yo and older 03/15/2024,03/31/2023,05/09/2021 Pfizer SARS-CoV-2 COVID-19, mRNA, LNP-S, preservative free 08/29/2020,08/08/2020 [...] vomiting DX:Nausea an d vomiting Parkinson's disease ([facility] V24, [facility] V28) DX:Parkinson's disease ([facility]) Alzheimer's disease, unspeci fied (CODE) ([facility] V24, [facility] V28) DX:Alzheimer's disease, uns pecified (CODE) ([facility]) History of pulmonary embolism DX :History of [...] Results * Annual BMP Blood Test (03/11/2024) Annual BMP Blood Test abstracted Historical Provider MD HEALTH MAINTENANCE Final Result * Lipid panel [...] Documents on File Type Date Recorded Patient Yeast Washer Expl anation Health Care Decision (hx) 02/25/2023 HE ALTH CARE PROXY Health Care Decision (hx) 02/25/2023 HE ALTH CARE PROXY Health Care Decision (hx) 02/25/2023 HE ALTH CARE PROXY Health Care Decision (hx) 02/25/2023 HE ALTH CARE PROXY Health Care Decision (hx) 02/25/2023 HE [facility] C[facility] PROX[facility] Care Teams Clerk Entry Level Relationship Specialty Start Date End Date Za Marie DO [address] [place] [id number] PCP - General Internal Medicine 05/13/24
[2025-03-08 15:00] LABS: Prostate Specific Antigen < 0.10 ng/mL (<0.05-4.0)
== END 2025-03-08 11:53 | disposition home or self-care (01) ==
LOC: HO.HMGCLDS 11:52
PROVIDERS: Visit Provider Nurse Practitioner Family
DX: R35.1 Nocturia (principal); Z12.5 Encounter for screening for malignant neoplasm of prostate; Z85.46 Personal history of malignant neoplasm of prostate
CPT/HCPCS: 36415; 84153

== ENCOUNTER 2025-05-25 14:46 | Outpatient (AMB) | payer OTHER, SELFPAY ==
--- NOTE | 2025-05-25 14:56 | A.OFFVIS_ITS ---
Intake Visit Reasons: 3m/PSA/US Intake Note: Patient is present for 3M/PSA/US Urology Medication:MIRABEGRON Antibiotic Allergy:NONE Blood Thinner:APIXABAN Panel Monitor Required: No Allergies fluoxetine (From Prozac) Allergy (Mild, Verified 05/25/25 15:33) Rash Medication List - Last Reconciled 05/25/25 by YAYA FelipeP- albuterol sulfate mcg inhalation apixaban (Eliquis) 2.5 mg PO BID carbidopa-levodopa 25-100 mg 1 tab PO QID clonazepam 0.25 mg (1/2 x 0.5 mg) PO BEDTIME 30 days docusate sodium (Stool Softener) 50 mg PO DAILY donepezil 10 mg PO DAILY 30 days escitalopram oxalate 10 mg PO DAILY ferrous sulfate 325 mg PO DAILY gabapentin 100 mg PO BEDTIME 3 months MDD 100mg levetiracetam 500 mg PO BID levetiracetam ER 750 mg PO DAILY Held on 03/01/25. Instructions: Dose Change mirabegron ER (Myrbetriq) 25 mg PO DAILY 30 days mirtazapine 7.5 mg PO BEDTIME montelukast 10 mg PO DAILY ropinirole 2 mg PO DAILY 30 days HPI Comments Details: Tyron is a pleasant 80-year-old male patient who was accompanied by his significant other at today's office visit. He has a past medical history of prostate cancer status post prostatectomy in 2004, erectile dysfunction status post penile prosthetic in 2014, and Parkinson's. He presents to the office today for follow-up. In discussion with the patient today he reports no improvement in episodes of urinary urgency, urinary frequency, and mixed urinary incontinence with Myrbetriq that was prescribed during last office visit. He does discuss how difficult has been to manage his Parkinson's. Most recent retroperitoneal ultrasound results reviewed with the patient today. 03/06 no definitive acute pathology in renal imaging questionable right lower pole subcentimeter cysts verses trace perinephric fluid verses normal. It is nonspecific. The bladder is well distended and normal. Postvoid bladder volume 65 mL. Most recent PSA results were reviewed with the patient and his today: PSA: 03/06 <0.10 We did discussed potential causes of lower urinary tract symptoms patient is experiencing as well as further treatment options and risks and benefits of these treatment options. Information provided regarding further treatment options. He denies hematuria, dysuria, foul smelling urine, changes to urinary stream, flank pain, fever, and or chills. He previously trialed trospium without improvement in his lower urinary tract symptoms. We did discussed correlation of Parkinson's symptoms with lower urinary tract symptoms. We also reviewed bladder triggers and irritants. All questions were answered. He otherwise offers no other issues or concerns at this time. 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 Surgical History H/O lumbosacral spine surgery Family History Father Cancer Alzheimer disease Hypertension Mother Hypertension Diabetes Sister Cancer Daughter Asthma Depression Social History Household Members: Spouse Housing: House Alcohol intake: never Patient Tobacco Use Status: Never used Tobacco Review of Systems Const All systems reviewed & are unremarkable except as noted in HPI and below Physical Exam Const General: cooperative, healthy appearing, comfortable, no acute distress, well developed, alert and awake Orientation/consciousness: patient oriented x3 Limitations: ambulation with walker HEENT Head: Yes normal to inspection, Yes normocephalic and Yes atraumatic Ears: hearing grossly normal bilaterally Eyes General: appearance normal, both eyes and all related structures Neck Neck: Yes normal visual inspection and Yes trachea midline Chest Chest palpation & inspection: normal inspection of the chest Resp Effort & Inspection: normal respiratory effort and able to speak in complete sentences Cardio Rate: regular rate GI Inspection: Yes normal to inspection General: Yes no CVA tenderness Back/Spine/Pelvis Back: no CVA tenderness Skin General skin exam: no rashes or lesions noted Neuro General: patient oriented x3 Extrem General: Yes normal to inspection Psych Appearance: grossly normal and well kempt Mental Status: mental status grossly normal Speech and movement: Normal speech and movement present and Clear speech present Affect: normal affect Attitude: cooperative Thought process: Normal thought process present Thought content: Normal thought content present Insight: Fair insight present (Psych) Judgement: Fair judgement present (Psych) Results Reviewed Results Reviewed: Date of Service: 03/03/25 Procedure(s): US bladder FINDINGS: BLADDER: Well distended and normal. Ureteral jets were not demonstrated. Prevoid bladder volume is 161 mL. Postvoid bladder volume is 67 mL. IMPRESSION: Small residual postvoid volume ___ Date of Service: 02/27/25 Procedure(s): US retroperitoneal limited Findings: The kidneys are normal in echotexture bilaterally. No hydronephrosis. The right kidney is normal in size, measuring 10.0cm in length. Questionable lower pole cyst versus trace perinephric fluid ( normal versus trace perinephric fluid is favored on the cine images). The left kidney is normal in size, measuring 10.5cm in length. Cyst measuring 2.6 x 2.8 x 2.9 cm Impression: No definitive acute pathology.Questionable right lower pole subcentimeter cyst versus trace perinephric fluid versus normal. Perinephric stranding is a nonspecific finding. Assessment & Plan Assessment & Plan (1) Urinary incontinence, mixed: Code(s): N39.46 - Mixed incontinence Category: Medical (2) Nocturia more than twice per night: Comment: followed by urology BPH -Myrbetriq 25mg po daily Code(s): R35.1 - Nocturia Category: Medical (3) History of prostate cancer: Code(s): Z85.46 - Personal history of malignant neoplasm of prostate Category: Medical Plan In office urinalysis results reviewed with the patient today; as noted above. Most recent PSA results reviewed with the patient today; as noted above. Most recent retroperitoneal ultrasound results reviewed with the patient today; as noted above. We did discussed potential causes of his lower urinary tract symptoms as well as further treatment options and risks and benefits of these treatment options. Stop Myrbetriq. Start Gemtesa as discussed and prescribed. We did discuss and information provided regarding further treatment options and risks and benefits of these treatment options. All questions were answered. Follow-up in 1-3 months with [facility] sooner with any issues, concerns, and or questions Medications: New vibegron (Gemtesa) 75 mg PO DAILY 30 tabs 3RF 30 days N32.81 - Overactive bladder Patient Instructions: The patient had an opportunity to ask questions regarding the treatment plan. All questions were answered. Physical exam, labs, and imaging were discussed and reviewed in detail. As well as risks, benefits, and discussion of treatment choices. No major barriers to understanding were identified. The patient expressed understanding and agreement with the above treatment plan. The patient was made aware they should contact our office by phone for worsening of their current condition, the appearance of new symptoms, or with any questions or concerns. Compliance is encouraged with any medications and follow up testing that is ordered. It is a privilege to be allowed the opportunity to participate in? your urological care.? Again, if you have any questions or concerns If you have any questions or concerns please do not hesitate to contact me. The office is [phone]. This note is constructed using voice recognition software. While every effort has been made to ensure accuracy fence post driver errors may have been included. Yours sincerely, ROSALINO Felipe Coding Level of Care Code Est Pt Level 4 (05606) Complex EM visit Add On G2211 Diagnoses Urinary incontinence, mixed N39.46 Nocturia more than twice per night R35.1 History of prostate cancer Z85.46
--- OUTSIDE RECORDS SUMMARY | 2025-05-25 18:03 | XMS_ITS | Patient Health Record ---
Author Organization Richie Turner M.D. Address [address] [facility] [address] [place] [address] Care Team Providers Care Product/Industry Consultant Name Role Phone Richie Turner Primary Care Provider Gurwinder Funez Unavailable [phone] Reason For Referral No Information Medications Medication [...] Notes Problem Obstructive sleep apnea syndrome (disorder) (65138530) Obstructive sleep apnea (adult) (pediatric) (327.23) Active confirmed Problem Benign essential hypertension (4457490) Essential hypertension, benign (401.1) Active confirmed Problem Asthma (disorder) (684698510) Asthma, unspecified, unspecified status (493.90) Active confirmed Problem History of malignant neoplasm of prostate (760374059) Personal history of malignant neoplasm of prostate (V10.46) Active confirmed Problem Acute exacerbation of chronic asthmatic bronchitis (789574366) Chronic obstructive asthma, with (acute) exacerbation (493.22) Active confirmed Problem Uncomplicated asthma (disorder) (318765928) Unspecified asthma, uncomplicated (J45.909) Active confirmed Problem Essential hypertension (20231041) Essential (primary) hypertension (I10) Active confirmed Problem Sedative, hypnotic or anxiolytic dependence, 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 [address] [place], [place] [id number] [phone] [id number] Tyron Rubio Self - patient is the [...]
== END 2025-05-25 15:36 | disposition home or self-care (01) ==
LOC: HO.HUSH 14:47
PROVIDERS: Visit Provider Nurse Practitioner Family
DX: N39.46 Mixed incontinence (principal); R35.1 Nocturia; Z85.46 Personal history of malignant neoplasm of prostate; Z13.9 Encounter for screening, unspecified
CPT/HCPCS: 99214; G2211

== ENCOUNTER → 2025-05-25 14:46 | Outpatient (BNVA) | payer OTHER, SELFPAY | PROVIDERS: Visit Provider Nurse Practitioner Family | DX: N39.46 Mixed incontinence (principal); R35.1 Nocturia; Z13.9 Encounter for screening, unspecified; Z85.46 Personal history of malignant neoplasm of prostate | CPT/HCPCS: 81003; 99212 ==

== ENCOUNTER 2025-06-06 10:18 | Outpatient (AMB) | payer OTHER, SELFPAY ==
--- NOTE | 2025-06-06 10:22 | MHC.OFFVIS ---
Vital Signs 06/06/25 10:34 Height 5 ft 3 in Weight 155 lb 8 oz BMI 27.5 BP 110/72 Blood Pressure Location Rt brachial Position Sitting Pulse 60 Pulse Source Pulse Oximeter Pulse Oximetry (%) 97 Oxygen Delivery Method Room Air Intake Visit Reasons: 3m follow up OK per MD Intake Note: Follow up Parkinson's disease without dyskinesia, without mention of fluctuations, REM Behavioral and sleep disorder, Fatigue and Nocturia, seizure disorder Healthcare Administration Internship Required: No Accompanied by: Spouse and Son Allergies fluoxetine (From Prozac) Allergy (Mild, Verified 06/06/25 10:22) Rash HPI Comments Details: 80 y/o male patient with PD comes for follow up. His and son are with him today and help with history. He was dx with PD in 2021. No hospitalizations since last visit. He feels his parkinsons has progressed. He denies falls He has some hallucinations- sees people in his room at night . He has insight and manages. when he had the UTI his halluicnations increased He is independent in some ADLs- needs help with dressing and need supervision during shower. He uses a walker at home . He has chronic back pain- is scheudled to see [facility] and sports He has constipation- miralax as needed He says he has bilateral leg weakness, sleeps all day long and has difficulty staying asleep at niggt He still has some freezing episodes He is on Sinemet 25/100 - 1 qid He is also taking Ropinirole 2mg qhs. 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 He has a GOVERNMENT RELATIONS ANALYST helping him with bathing, dressing 3x a week, 30-34 hours a week, handicap accessible with rails. His PCP is Dr. Levine at [facility]. 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 Code(s): G20.A1 - Parkinson's disease without dyskinesia, without mention of fluctuations Category: Medical Qualifiers: Dyskinesia presence: with dyskinesia Fluctuating manifestations: with fluctuating manifestations Qualified Code(s): G20.B2 - Parkinson's disease with dyskinesia, with fluctuations (2) Nocturia more than twice per night: Comment: followed by urology BPH -Myrbetriq 25mg po daily Code(s): R35.1 - Nocturia Category: Medical Plan Ropinirole to 2mg qhs ( XR not covered by insurance) PD Continue Sinemet 25/100 1 tabs qid - patient education provided re: medication adherence. Increase gabapentin 200mg qhs Continue exercise Past trials - Rytary -did not tolerate Medications: Changed From gabapentin 100 mg PO BEDTIME 3 months 90 caps 1RF leg pain MDD 100mg M79.662 - Pain in left lower leg To gabapentin 200 mg (2 x 100 mg) PO BEDTIME 180 caps 1RF leg pain 3 months M79.662 - Pain in left lower leg Resumed levetiracetam ER 750 mg PO DAILY 90 tabs 6RF Coding Level of Care Code Complex visit Add On G2211 Diagnoses Parkinson's disease with dyskinesia and fluctuating manifestations G20.B2 Dyskinesia presence: with dyskinesia Fluctuating manifestations: with fluctuating manifestations Nocturia more than twice per night R35.1
[2025-06-06 10:34] VITALS: BP 110/72; PULSE 60; O2SAT 97; BMI 27.5
== END 2025-06-06 12:54 | disposition home or self-care (01) ==
LOC: HO.HSMS 10:18
PROVIDERS: Visit Provider Psychiatry & Neurology Neurology
DX: G20.B2 Parkinson's disease with dyskinesia, with fluctuations (principal); R35.1 Nocturia
CPT/HCPCS: 99214; G2211

== ENCOUNTER → 2025-06-06 10:18 | Outpatient (BNVA) | payer OTHER, SELFPAY | PROVIDERS: Visit Provider Psychiatry & Neurology Neurology | DX: G20.B2 Parkinson's disease with dyskinesia, with fluctuations (principal); M79.662 Pain in left lower leg; R35.1 Nocturia; Z79.899 Other long term (current) drug therapy | CPT/HCPCS: 99212 ==